=== PATIENT | male | born 1950 | race Caucasian/White ===

== ENCOUNTER 2020-09-25 06:11 | Outpatient (REF) | payer MEDICARE, SELFPAY ==
[2020-09-25 07:07] LABS: MANUAL DIFF FLAG NO
[2020-09-25 07:11] LABS: Basophils Absolute Auto 0.1 X10*3/uL (0.0-0.2); Basophils Percent Auto 0.8 % (0-2); Eosinophils Absolute Auto 0.4 X10*3/uL (0.0-0.4); Eosinophils Percent Auto 4.5 % (0-4); Hemoglobin 16.3 g/dl (14.0-18.0); Imm Gran Abs Auto 0.01 X10*3/uL (0.00-0.03); Imm Gran Pct Auto 0.1 % (0.0-0.4); Lymphocytes Absolute Auto 2.6 X10*3/uL (1.2-4.9); Lymphocytes Percent Auto 31.1 % (20-40); Mean Corpuscular HGB Conc 33.3 g/dl (31.0-36.0); Mean Corpuscular Hemoglobin 29.7 pg (27.0-33.0); Mean Corpuscular Volume 89.4 fL (80-98); Mean Platelet Volume 10.6 fL (9.4-12.4); Monocytes Absolute Auto 0.7 X10*3/uL (0.1-1.2); Monocytes Percent Auto 8.2 % (2-11); Neutrophils Absolute Auto 4.7 X10*3/uL (2.0-8.3); Neutrophils Percent Auto 55.3 % (45-73); Platelet Count 248 X10*3/uL (160-400); Red Blood Count 5.48 X10*6/uL (4.60-5.80); White Blood Count 8.4 X10*3/uL (4.8-10.8)
[2020-09-25 08:00] LABS: Alanine Aminotransferase 33 U/L (0-40); Albumin Level 4.3 g/dL (3.5-5.0); Alkaline Phosphatase 74 U/L (39-117); Anion Gap 11 (12-20); Aspartate Amino Transferase 17 U/L (5-37); Bilirubin Total 0.7 mg/dL (0.0-1.0); Blood Urea Nitrogen 14 mg/dL (9-16); Calcium 9.5 mg/dL (8.4-10.2); Carbon Dioxide 30 mmol/L (22-29); Chloride 103 mmol/L (96-108); Cholesterol 165 mg/dL; Estimated Glomerular Filt Rate > 60; Glucose Fasting 105 mg/dL (60-99); HDL Cholesterol 42 mg/dL; LDL Cholesterol Calculated 95 mg/dl; Potassium 4.1 mmol/l (3.3-5.1); Sodium 140 mmol/L (135-145); Total Protein 6.9 g/dL (6.5-8.0); Triglycerides 142 mg/dL
[2020-09-25 08:31] LABS: Prostate Specific Antigen Scr 0.72 ng/mL (<0.05-4.0); Thyroid Stimulating Hormone 2.06 uIU/mL (0.32-4.0)
[2020-09-25 09:03] LABS: T4 Thyroxine 7.2 ug/dL (4.5-12.0)
[2020-09-25 09:08] LABS: Folate 11.1 ng/mL (> or = 4.0); Vitamin B12 243 pg/mL (200-900)
== END 2020-09-25 06:12 | disposition home or self-care (01) ==
LOC: HO.LAB 06:11
PROVIDERS: Visit Provider Internal Medicine
DX: E66.9 Obesity, unspecified (principal); R73.02 Impaired glucose tolerance (oral); I10 Essential (primary) hypertension; E78.5 Hyperlipidemia, unspecified; E03.9 Hypothyroidism, unspecified; Z12.5 Encounter for screening for malignant neoplasm of prostate
CPT/HCPCS: 36415; 80053; 80061; 82607; 82746; 84153; 84436; 84443; 85025

== ENCOUNTER 2022-01-06 06:39 | Outpatient (REF) | payer MEDICARE, SELFPAY ==
[2022-01-06 06:53] LABS: MANUAL DIFF FLAG NO
[2022-01-06 07:37] LABS: Basophils Absolute Auto 0.1 X10*3/uL (0.0-0.2); Basophils Percent Auto 0.9 % (0-2); Eosinophils Absolute Auto 0.4 X10*3/uL (0.0-0.4); Eosinophils Percent Auto 4.1 % (0-4); Hematocrit 48.5 % (42.0-52.0); Imm Gran Abs Auto 0.03 X10*3/uL (0.00-0.03); Imm Gran Pct Auto 0.3 % (0.0-0.4); Lymphocytes Absolute Auto 2.5 X10*3/uL (1.2-4.9); Mean Corpuscular Hemoglobin 29.6 pg (27.0-33.0); Mean Corpuscular Volume 89.6 fL (80.0-98.0); Mean Platelet Volume 10.6 fL (9.4-12.4); Monocytes Absolute Auto 0.8 X10*3/uL (0.1-1.2); Monocytes Percent Auto 9.1 % (2-11); Neutrophils Absolute Auto 5.2 x10*3/uL (2.0-8.3); Neutrophils Percent Auto 57.6 % (45-73); Platelet Count 299 X10*3/uL (160-400); Red Blood Count 5.41 X10*6/uL (4.60-5.80); Red Cell Distribution Width 13.9 % (11.0-16.0); White Blood Count 9.1 X10*3/uL (4.8-10.8)
[2022-01-06 08:18] LABS: Alanine Aminotransferase 35 U/L (0-40); Albumin Level 4.2 g/dL (3.5-5.0); Alkaline Phosphatase 81 U/L (39-117); Anion Gap 14 (12-20); Aspartate Amino Transferase 21 U/L (5-37); Bilirubin Total 0.9 mg/dL (0.0-1.0); Blood Urea Nitrogen 17 mg/dL (9-16); Calcium 9.6 mg/dL (8.4-10.2); Carbon Dioxide 26 mmol/L (22-29); Chloride 106 mmol/L (96-108); Cholesterol 165 mg/dL; Estimated Glomerular Filt Rate > 60; Free T4 (Free Thyroxine) 0.99 ng/dL (0.71-1.85); Glucose Random 105 mg/dL (60-115); HDL Cholesterol 40 mg/dL; LDL Cholesterol Calculated 107 mg/dl; Potassium 4.4 mmol/L (3.3-5.1); Prostate Specific Antigen Scr 1.35 ng/mL (<0.05-4.0); Sodium 142 mmol/L (135-145); Thyroid Stimulating Hormone 1.61 uIU/mL (0.32-4.0); Total Protein 7.2 g/dL (6.5-8.0); Triglycerides 94 mg/dL
[2022-01-06 08:24] LABS: Estimated Average Glucose 123 mg/dL; Hemoglobin A1c % 5.9 %
[2022-01-06 08:38] LABS: Folate 11.7 ng/mL (> or = 4.0); Vitamin B12 > 2000 pg/mL (200-900)
== END 2022-01-06 06:40 | disposition home or self-care (01) ==
LOC: HO.LAB 06:39
PROVIDERS: PCP Internal Medicine; Visit Provider Internal Medicine
DX: Z12.5 Encounter for screening for malignant neoplasm of prostate (principal); E03.9 Hypothyroidism, unspecified; R73.02 Impaired glucose tolerance (oral); E78.00 Pure hypercholesterolemia, unspecified; I10 Essential (primary) hypertension
CPT/HCPCS: 36415; 80053; 80061; 82607; 82746; 83036; 84153; 84439; 84443; 85025

== ENCOUNTER 2023-03-12 06:18 | Outpatient (REF) | payer MEDICARE, SELFPAY ==
[2023-03-12 08:33] LABS: Alanine Aminotransferase 43 U/L (0-40); Albumin Level 4.1 g/dL (3.5-5.0); Alkaline Phosphatase 80 U/L (39-117); Anion Gap 15 (12-20); Aspartate Amino Transferase 22 U/L (5-37); Bilirubin Total 0.7 mg/dL (0.0-1.0); Blood Urea Nitrogen 18 mg/dL (9-16); Calcium 9.5 mg/dL (8.4-10.2); Carbon Dioxide 22 mmol/L (22-29); Chloride 109 mmol/L (96-108); Cholesterol 133 mg/dL; Estimated Glomerular Filt Rate > 60; Glucose Random 106 mg/dL (60-115); HDL Cholesterol 37 mg/dL; LDL Cholesterol Calculated 84 mg/dl; Sodium 142 mmol/L (135-145); Total Protein 7.1 g/dL (6.5-8.0); Triglycerides 64 mg/dL
[2023-03-12 08:51] LABS: Free T4 (Free Thyroxine) 0.97 ng/dL (0.71-1.85); Thyroid Stimulating Hormone 2.18 uIU/mL (0.32-4.0)
== END 2023-03-12 06:19 | disposition home or self-care (01) ==
LOC: HO.LAB 06:18
PROVIDERS: PCP Internal Medicine; Visit Provider Internal Medicine
DX: E78.00 Pure hypercholesterolemia, unspecified (principal); R73.02 Impaired glucose tolerance (oral); E03.9 Hypothyroidism, unspecified; Z12.5 Encounter for screening for malignant neoplasm of prostate
CPT/HCPCS: 36415; 80053; 80061; 82607; 82746; 83036; 84153; 84439; 84443; 85025

== ENCOUNTER 2023-03-23 11:26 | Outpatient (AMB) | payer MEDICARE, SELFPAY ==
[2023-03-23 11:39] VITALS: BP 138/72; PULSE 74; O2SAT 97; BMI 35.1
--- NOTE | 2023-03-23 11:39 | A.OFFVIS_ITS ---
Intake Vital Signs 03/23/23 11:39 Height 5 ft 7 in Weight 224 lb BMI 35.1 BP 138/72 Blood Pressure Location Lt brachial Position Sitting Pulse 74 Pulse Source Pulse Oximeter Pulse Oximetry (%) 97 Oxygen Delivery Method Room Air Intake Visit Reasons: SAWV Allergies No Known Allergies Allergy (Verified 03/23/23 11:39) Medication List - Last Reconciled 03/23/23 by Isaiah Abdi MD atorvastatin 40 mg PO DAILY clotrimazole 1% 1 appl topical BID 4 weeks cyanocobalamin (vitamin B-12) 1,000 mcg PO DAILY levothyroxine 25 mcg PO QAM lisinopril 10 mg PO DAILY miconazole nitrate 2% (Zeasorb AF) 1 appl topical BID HPI SAWV HPI Details 73-year-old male with a history of hypercholesterolemia hypothyroidism hypertension, impaired glucose tolerance and generalized anxiety disorder coming in for annual well visit last seen in March 2022. [facility] Medical History (Updated 03/23/23 @ 11:46 by Isaiah Abdi MD) Hypercholesterolemia Hypertension Hypothyroid Impaired glucose tolerance Insomnia Obesity (BMI 30-39.9) Renal calculi Surgical History (Updated 10/14/20 @ 12:07 by Mary Jeffers Deborah) History of lithotripsy Family History (Updated 03/23/23 @ 11:40 by Kaci Gale CMA) Father No problems noted. Mother Diabetes Brother No problems noted. Social History (Updated 03/23/23 @ 11:56 by Isaiah Abdi MD) Housing: Apartment Alcohol intake: current Alcohol intake frequency: a few times a month Alcohol type: beer and wine Patient Tobacco Use Status: Never used Tobacco e-Cigarette/Vaping Use: Never Used Second Hand Smoke Exposure: No Current occupational status: retired Cognitive needs: No Hearing needs: No Vision needs: No Questionnaire Medicare Wellness Checkup [age] What gender do you identify with?: male During the past 4 weeks, how much have you been bothered by emotional problems such as feeling anxious, depressed, irritable, sad or downhearted, and blue?: not at all During the past 4 weeks, has your physical & emotional health limited your social activities with family, friends, neighbors, or groups?: not at all During the past 4 weeks, how much bodily pain have you generally had?: no pain During the past 4 weeks, was someone available to help you if you needed & wanted help?: no, not at all During the past 4 weeks, what was the hardest physical activity you could do for at least 2 minutes?: moderate Can you get to places out of walking distance without help? (For eg., can you travel alone on buses, taxis or drive your car?): Yes Can you go shopping for groceries or clothes without someone's help?: Yes Can you prepare your own meals?: Yes Can you do your housework without help?: Yes Because of any health problems, do you need the help of another person with your personal care needs such as eating, bathing, dressing or getting around the house?: No Can you handle your own money without help?: Yes During the past 4 weeks, how would you rate your health in general?: very good During the past 4 weeks how have things been going for you?: pretty well Are you having difficulties driving your car?: no Do you always fasten your seat belt when you are in a car?: yes, usually During past 4 weeks, have you been bothered by the following: never: Falling or dizzy when standing up, Sexual problems?, Trouble eating well?, Teeth or denture problems? and Problems using the telephone? and seldom: Tiredness or fatigue? Have you fallen 2 or more times in the past year?: No Are you afraid of falling?: No Are you a smoker?: no During the past 4 weeks, how many drinks of wine, beer, or other alcoholic beverages did you have?: 2-5 drinks per week Do you exercise for about 20 minutes 3 or more times a week?: no, I usually do not exercise this much Have you been given information to help with the following?: yes: Keeping track of your medications? and no: Hazards in your house that might hurt you? How often do you have trouble taking medicines the way you have been told to take them?: I always take medicine as prescribed How confident are you that you can control & manage most of your health problems?: very confident What is your race?: White PHQ-9 Over the last 2 weeks, how often have you been bothered by any of the following problems? 1. Little interest or pleasure in doing things: not at all 2. Feeling down, depressed, or hopeless: not at all 3. Trouble falling or staying asleep, or sleeping too much: several days 4. Feeling tired or having little energy: several days 5. Poor appetite or overeating: not at all 6. Feeling bad about yourself - or that you are a failure or have let yourself or your family down: not at all 7. Trouble concentrating on things, such as reading the newspaper or watching television: not at all 8. Moving or speaking so slowly that other people could have noticed. Or the opposite - being so fidgety or restless that you have been moving around a lot more than usual: not at all 9. Thoughts that you would be better off or of hurting yourself in some way: not at all Total score: 2 Source: Developed by Drs. Mina Fontaine, Lali Lopez, Stalin Son and colleagues, with an educational larry from [employer]. Thrive Questionnaire Date Thrive assessed: 03/23/23 I am a: Patient What is your living situation today?: I have a steady place to live Within the past 12 months, did the food you bought not last and you didn't have the money to get more?: Never true Within the past 12 months, did you worry whether your food would run out before you got money to buy more?: Never true Do you have trouble paying for medicines?: No Do you have trouble getting transportation to medical appointments?: No Do you have trouble paying your heating and electricity bill?: No Do you have trouble taking care of your child, family member or friend?: No Do you have trouble with day-to-day activities such as bathing, preparing meals, shopping, managing finances, etc.?: No Are you currently unemployed and looking for a job?: No Are you interested in more education?: No Currently or been in a relationship where the following occur: no concerns reported GENO-7 AMB Questionnaire GENO-7 Date GENO - 7 assessed: 03/23/23 Feeling nervous, anxious, or on edge: 0 = Not at all Not being able to stop or control worryin = Not at all Worrying too much about different things: 0 = Not at all Trouble relaxin = Not at all Being so restless that it is hard to sit still: 0 = Not at all Becoming easily annoyed or irritable: 0 = Not at all Feeling afraid as if something awful might happen: 0 = Not at all Total GENO-7 score (0-4 normal; 5-9 mild; 10-14 moderate; 15-21 severe): 0 Source: Developed by Drs. Mina Fontaine, Lali Lopez, Stalin Son and colleagues, with an educational larry from [employer]. Review of Systems Const Denies poor appetite and Denies weakness Eyes Denies no additional complaints ENT Reports Normal hearing present Card Denies chest pain, Denies syncope, Denies rapid heart rate and Denies dyspnea Resp Denies cough and Denies dyspnea GI Denies change in stool character, Reports constipation, Denies diarrhea, Denies nausea and Denies vomiting Denies dysuria and Denies urinary frequency Neuro Reports Normal hearing present, Denies confusion, Denies syncope and Denies weakness Psych Denies confusion Physical Exam Vital Signs: Last Vital Signs Pulse 74 03/23/23 11:39 BP 138/72 03/23/23 11:39 Pulse Ox 97 03/23/23 11:39 Oxygen Delivery Method Room Air 03/23/23 11:39 BMI result Body Mass Index 35.1 Const General: alert and awake; No confusion Orientation/consciousness: No confusion HEENT Head: Yes normocephalic Ears: external ears normal and TM's normal bilaterally Face and sinus: Yes normal facial exam Mouth: moist mucous membranes Throat: Yes tonsils normal Eyes Conjunctivae: conjunctivae normal Pupils: Equal, round and reactive pupils present and Pupil accommodation reflex normal Direct Ophthalmoscopy: normal light reflex Neck Neck: No lymphadenopathy Thyroid: Thyroid normal Chest Chest palpation & inspection: normal inspection of the chest Resp Effort & Inspection: normal respiratory effort and no audible wheezes Auscultation: clear to auscultation bilaterally, no crackles, no wheezes and lung sounds not diminished Cardio Rate: regular rate Rhythm: regular rhythm Peripheral pulses: radial pulses present and dorsalis pedis present GI Other: guaiac negativeprostate N Palpation (GI): no masses Auscultation: normal bowel sounds and normoactive bowel sounds Male General Exam: Yes normal external exam Skin General skin exam: no rashes or lesions noted Rashes: no rashes Neuro General: deep tendon reflexes 2+ bilaterally and No confusion Cranial nerves: Yes Equal, round and reactive pupils present, Yes Midline tongue present, Yes Normal hearing present and Yes Ability to bilaterally elevate shoulders present Cognition (Neuro): normal cognition Gait exam (Neuro): Normal gait present Motor exam (neuro): 5/5 motor strength present throughout Deep tendon reflexes (DTR's): Right brachioradialis reflex intensity grade: 2+, Left brachioradialis reflex intensity grade: 2+, Right patellar reflex intensity grade: 2+ and Left patellar reflex intensity grade: 2+ Extrem General: No edema Assessment & Plan Assessment & Plan (1) Encounter for subsequent annual wellness visit (AWV) in Medicare patient: Code(s): Z00.00 - Encounter for general adult medical examination without abnormal findings (2) Hypothyroid: Code(s): E03.9 - Hypothyroidism, unspecified Qualifiers: Hypothyroidism type: acquired Qualified Code(s): E03.9 - Hypothyroidism, unspecified Plan: Continue with thyroid medication (3) Hypercholesterolemia: Code(s): E78.00 - Pure hypercholesterolemia, unspecified Plan: Avoid fried foods, chicken skin, eggs, butter margarine, pastries and meat. Be it pork or beef they have a lot of cholesterol LDL goal of less than 130 and triglyceride of less than 1 for. Patient is on atorvastatin 40 mg once a day (4) Hypertension: Code(s): I10 - Essential (primary) hypertension Qualifiers: Hypertension type: essential hypertension Qualified Code(s): I10 - Essential (primary) hypertension Plan: Continue with blood pressure medication. Decrease salt intake and exercise patient is on lisinopril 10 mg once a (5) Impaired glucose tolerance: Code(s): R73.02 - Impaired glucose tolerance (oral) Plan: Decrease the amount of carbohydrate intake, pasta, bread, rice and potatoes are all sugar and that is aside from all the sweet stuff, remember that fruits are good but they are Sweet also. (6) Obesity (BMI 30-39.9): Code(s): E66.9 - Obesity, unspecified Plan: Diet and exercise (7) Generalized anxiety disorder: Code(s): F41.1 - Generalized anxiety disorder Plan: Stable (8) LFT elevation: Code(s): R79.89 - Other specified abnormal findings of blood chemistry Plan: Advised get an ultrasound of the liver and hepatitis profile Orders: Orders Ferritin Today R79.89 - Other specified abnormal findings of blood chemistry Liver Panel Today R79.89 - Other specified abnormal findings of blood chemistry Hepatitis B,C Profile Today R79.89 - Other specified abnormal findings of blood chemistry US abdomen complete Today R79.89 - Other specified abnormal findings of blood chemistry ECG 12 lead EKG Today I10 - Essential (primary) hypertension Quality Reporting (2019) Depression/Bipolar (159/160/161/177) PHQ-9: Total score: 2 Coding Level of Care Code Medicare Subsequent (G0439) Diagnoses Encounter for subsequent annual wellness visit (AWV) in Medicare patient Z00.00 Hypothyroid E03.9 Hypothyroidism type: acquired Hypercholesterolemia E78.00 Hypertension I10 Hypertension type: essential hypertension Impaired glucose tolerance R73.02 Obesity (BMI 30-39.9) E66.9 Generalized anxiety disorder F41.1 LFT elevation R79.89
== END 2023-03-23 12:34 | disposition home or self-care (01) ==
PROVIDERS: Visit Provider Internal Medicine
DX: Z00.00 Encounter for general adult medical examination without abnormal findings (principal); E03.9 Hypothyroidism, unspecified; I10 Essential (primary) hypertension; Z68.35 Body mass index [BMI] 35.0-35.9, adult; E78.00 Pure hypercholesterolemia, unspecified; R73.02 Impaired glucose tolerance (oral); E66.9 Obesity, unspecified; F41.1 Generalized anxiety disorder; R79.89 Other specified abnormal findings of blood chemistry
CPT/HCPCS: G0439

== ENCOUNTER 2023-04-08 07:43 | Outpatient (REF) | payer MEDICARE, SELFPAY ==
--- NOTE | ~2023-04-08 | US_ITS ---
EXAMINATION: US ABDOMEN COMPLETE CLINICAL INFORMATION: Other specified abnormal findings of blood chemistry. COMPARISON: Renal ultrasound 01/07/2011 and 09/22/2007. X-ray abdomen KUB 01/15/2009. CT abdomen 09/07/2007. TECHNIQUE: Real-time imaging of the abdominal viscera. FINDINGS: PANCREAS: Head and body appear unremarkable. Tail not visualized. ABDOMINAL AORTA: The proximal, mid, and distal segments are normal in caliber. INFERIOR VENA CAVA: Visualized portions are normal. LIVER: The liver is normal in size. The liver contour is normal. No focal hepatic lesion appreciated. There is no intrahepatic biliary duct dilatation seen. GALLBLADDER: The gallbladder is physiologically distended without evidence of stones, sludge, polyps, wall thickening or pericholecystic fluid. Technologist reports negative sonographic Zavala's sign. COMMON BILE DUCT: Normal in caliber measuring 0.3 cm in diameter. RIGHT KIDNEY: No hydronephrosis or renal calculi. The kidney measures 11.6 cm in maximum dimension. Suspect multiple renal cortical scars/renal cortical thinning. Less than 4 cm benign right simple renal cyst for which no further dedicated follow up imaging is indicated LEFT KIDNEY: Evaluation is limited by suboptimal technique. Question 1 cm, nonobstructing left mid to upper pole collecting system stone. Hydronephrosis is not clearly demonstrated by the technologist; suspect parapelvic cysts. The kidney measures 13.7 cm in maximum dimension. Multiple, less than 3 cm benign left simple renal cysts for which no further dedicated follow up imaging is indicated. SPLEEN: The spleen measures 11.0 cm in maximum dimension. FREE FLUID: None. US/US abdomen complete IMPRESSION: Limited study. No gross acute radiographic finding. Question 1 cm, nonobstructing left mid to upper pole collecting system stone. Suspect multiple right renal cortical scars/renal cortical thinning.
--- NOTE | 2023-04-08 08:49 | ECG_ITS ---
Test Reason : htn Blood Pressure : / mmHG Vent. Rate : 068 BPM Atrial Rate : 068 BPM P-R Int : 166 ms QRS Dur : 088 ms QT Int : 400 ms P-R-T Axes : 050 023 063 degrees QTc Int : 425 ms Normal sinus rhythm Normal ECG No previous ECGs available Referred By: Isaiah Abdi Electronically Signed By:CUCO PATRICIA
[2023-04-08 10:22] LABS: Alanine Aminotransferase 32 U/L (0-40); Albumin Level 4.1 g/dL (3.5-5.0); Alkaline Phosphatase 79 U/L (39-117); Aspartate Amino Transferase 21 U/L (5-37); Bilirubin Direct 0.3 mg/dL (0.0-0.5); Bilirubin Total 0.9 mg/dL (0.0-1.0); Total Protein 7.1 g/dL (6.5-8.0)
[2023-04-08 10:37] LABS: Ferritin 606 ng/mL (20-250)
[2023-04-08 11:29] LABS: HBS Num1 0.27 mIU/mL (0-7.99); HBc Num1 0.13 S/CO (0.00-0.79); Hepatitis B Core Antibody Nonreactive (Nonreactive); Hepatitis B Surface Antigen Negative (Negative); ~HepC Num1 0.06 S/CO (0.00-0.79); ~Hepatitis B Surface Antibody NONREACTIVE (Nonreactive); ~Hepatitis C Antibody Nonreactive (Nonreactive)
== END 2023-04-08 07:44 | disposition home or self-care (01) ==
LOC: HO.US 07:43
PROVIDERS: PCP Internal Medicine; Visit Provider Internal Medicine
DX: R79.89 Other specified abnormal findings of blood chemistry (principal); I10 Essential (primary) hypertension
CPT/HCPCS: 36415; 76700; 80076; 82728; 86704; 86706; 86803; 87340; 93005

== ENCOUNTER → 2023-04-08 08:49 | Outpatient (BNV) | payer MEDICARE, SELFPAY | PROVIDERS: PCP Internal Medicine; Visit Provider Internal Medicine | DX: I10 Essential (primary) hypertension (principal) | CPT/HCPCS: 93010 ==

== ENCOUNTER 2023-06-28 15:16 | Outpatient (AMB) | payer MEDICARE, SELFPAY ==
[2023-06-28 15:25] VITALS: BP 112/66; PULSE 85; O2SAT 99; BMI 34.0
--- NOTE | 2023-06-28 15:25 | A.OFFPC_ITS ---
Vital Signs 06/28/23 15:25 Height 5 ft 7 in Weight 217 lb 0.6 oz BMI 34.0 BP 112/66 Blood Pressure Location Lt brachial Position Sitting Pulse 85 Pulse Source Pulse Oximeter Temp Source Skin Pulse Oximetry (%) 99 Oxygen Delivery Method Room Air Intake Visit Reasons: 3 month f/u Sharepoint Engineer Required: No Allergies No Known Allergies Allergy (Verified 06/28/23 15:26) Tobacco use date assessed: 06/28/23 Fall risk assessment: No Falls in past year Last assessed Fall Risk: 06/28/23 Dental Screening Dental Screen Date: 06/28/23 Did you have a dental visit in the last 12 months?: Yes Did you have a dental problem in the last 6 months where you did not have access to dental care?: No Was dental information given to patient?: Patient has dentist HPI 3 month f/u HPI Details 73-year-old obese male with hypothyroidi sm, hypercholesterolemia hypertension impaired glucose tolerance in general as anxiety disorder last seen for wellness in March 2023.. Noted to have an elevated liver function test and last blood work and repeat was done showing normal liver function test. Patient had hepatitis profile which was negative and an ultrasound of the abdomen was done liver was fine but incidentally question of 1 left kidney stone with cysts [facility] Medical History (Updated 06/28/23 @ 16:04 by Isaiah Abdi MD) Obesity (BMI 30-39.9) Impaired glucose tolerance Hypertension Insomnia Hypercholesterolemia Hypothyroid Renal calculi Surgical History (Updated 10/14/20 @ 12:07 by DANIELA Long) History of lithotripsy Family History (Updated 03/23/23 @ 11:40 by Kaci Gale CMA) Father No problems noted. Mother Diabetes Brother No problems noted. Social History (Updated 03/23/23 @ 11:56 by Isaiah Abdi MD) Housing: Apartment Alcohol intake: current Alcohol intake frequency: a few times a month Alcohol type: beer and wine Patient Tobacco Use Status: Never used Tobacco e-Cigarette/Vaping Use: Never Used Second Hand Smoke Exposure: No Current occupational status: retired Cognitive needs: No Hearing needs: No Vision needs: No Questionnaire Thrive Questionnaire Date Thrive assessed: 03/23/23 AUDIT C Alcohol Use Questionnaire (AUDIT-C) 1. How often do you have a drink containing alcohol?: 2-3 times a week 2. How many drinks containing alcohol do you have on a typical day when you are drinking?: 1 or 2 3. How often do you have six or more drinks on one occasion?: Never Total Score: 3 GENO-7 AMB Questionnaire GENO-7 Date GENO - 7 assessed: 03/23/23 Source: Developed by Drs. Mina Fontaine, Lali Lopez, Stalin Son and colleagues, with an educational larry from [employer]. Physical exam (Primary Care) Vital Signs: Last Vital Signs Pulse 85 06/28/23 15:25 BP 112/66 06/28/23 15:25 Pulse Ox 99 06/28/23 15:25 Oxygen Delivery Method Room Air 06/28/23 15:25 BMI result Body Mass Index 34.0 Tobacco/Smoking Status: Tobacco use Status Tobacco use date assessed 06/28/23 06/28/23 15:26 Patient Tobacco Use Status Never used Tobacco 06/28/23 15:26 e-Cigarette/Vaping Use Never Used 06/28/23 15:26 Thrive Assessment: Date of Thrive Assessment Date Thrive assessed 03/23/23 06/28/23 15:26 Const General: alert; No acute distress Eyes Conjunctivae: conjunctivae normal Resp Auscultation: clear to auscultation bilaterally Cardio Rate: regular rate Rhythm: regular rhythm GI Inspection: Yes normal to inspection Extrem General: Yes normal to inspection and No edema Office Procedures Flu Questionnaire Does the patient have a severe egg allergy?: No Does the patient have severe life threatening allergies?: No Does the patient have a fever or illness today?: No Has the patient ever had Guillain-[place] Syndrome?: No Has the patient ever had any past reaction to a flu shot?: No Immunizations flu vacc [id number] 6mos up(PF) 60 mcg(15 mcgx4)/0.5 mL IM syringe Performing Provider: Isaiah Abdi MD [facility] Administered by: DANIELA Desir on 06/28/23 16:17 Dose Route Admin Location Dispensed Lot Number Expiration Date NDC Visual Basic Developer 0.5 mL IM Left Deltoid 0.5 mL [id number] 03/05/24 14150-550-21 [employer] VIS Given Date VIS Provided VIS Publication Date 06/28/23 Single Vaccine 21 Eligibility Eligibility Date Funding Source Not [facility] Eligible 06/28/23 Private Assessment and Plan Assessment & Plan (1) Hypothyroid: Code(s): E03.9 - Hypothyroidism, unspecified Qualifiers: Hypothyroidism type: acquired Qualified Code(s): E03.9 - Hypothyroidism, unspecified Plan: Continue with thyroid medication (2) Hypercholesterolemia: Code(s): E78.00 - Pure hypercholesterolemia, unspecified Plan: Avoid fried foods, chicken skin, eggs, butter margarine, pastries and meat. Be it pork or beef they have a lot of cholesterol LDL goal of less than 130 and triglyceride of less than 150 patient on atorvastatin 40 mg once a (3) Hypertension: Code(s): I10 - Essential (primary) hypertension Qualifiers: Hypertension type: essential hypertension Qualified Code(s): I10 - Essential (primary) hypertension Plan: Continue with blood pressure medication. Decrease salt intake and exercise continue with lisinopril 10 mg once a day (4) Impaired glucose tolerance: Code(s): R73.02 - Impaired glucose tolerance (oral) Plan: Decrease the amount of carbohydrate intake, pasta, bread, rice and potatoes are all sugar and that is aside from all the sweet stuff, remember that fruits are good but they are Sweet also. (5) Obesity (BMI 30-39.9): Code(s): E66.9 - Obesity, unspecified Plan: Diet and exercise noted weight loss (6) LFT elevation: Code(s): R7. - Other specified abnormal findings of blood chemistry Plan: Resolved (7) Left renal stone: Comment: 04/2023 Code(s): N20.0 - Calculus of kidney Plan: Increase oral fluid (8) High serum ferritin: Code(s): R7.89 - Other specified abnormal findings of blood chemistry Orders: Orders Transferrin Today R7 - Other specified abnormal findings of blood chemistry Influenza [id number] Immunization Today Z23 - Encounter for immunization Complete Blood Count Auto Diff Today - Other specified abnormal findings of blood chemistry Ferritin Today R7.89 - Other specified abnormal findings of blood chemistry IRON PROFILE Today . - Other specified abnormal findings of blood chemistry Reticulocyte Count Today - Other specified abnormal findings of blood chemistry Referrals Urology Referral N20.0 - Calculus of kidney Coding Level of Care Code Est Pt Level 4 (50503) Diagnoses Acquired hypothyroidism E03.9 Hypothyroidism type: acquired Hypercholesterolemia E78.00 Essential hypertension I10 Hypertension type: essential hypertension Impaired glucose tolerance R73.02 Obesity (BMI 30-39.9) E66.9 LFT elevation R79.89 Left renal stone N20.0 High serum ferritin R79.89
== END 2023-06-28 16:11 | disposition home or self-care (01) ==
PROVIDERS: PCP Internal Medicine; Visit Provider Internal Medicine
DX: E03.9 Hypothyroidism, unspecified (principal); E78.00 Pure hypercholesterolemia, unspecified; E66.9 Obesity, unspecified; Z68.34 Body mass index [BMI] 34.0-34.9, adult; Z23 Encounter for immunization; I10 Essential (primary) hypertension; R73.02 Impaired glucose tolerance (oral); R79.89 Other specified abnormal findings of blood chemistry; N20.0 Calculus of kidney
CPT/HCPCS: 90471; 90686; 99214

== ENCOUNTER 2023-07-12 06:43 | Outpatient (REF) | payer MEDICARE, SELFPAY ==
[2023-07-12 07:04] LABS: MANUAL DIFF FLAG NO
[2023-07-12 07:38] LABS: Basophils Absolute Auto 0.1 X10*3/uL (0.0-0.2); Eosinophils Absolute Auto 0.4 X10*3/uL (0.0-0.4); Eosinophils Percent Auto 4.6 % (0-4); Hematocrit 47.2 % (42.0-52.0); Hemoglobin 15.8 g/dl (14.0-18.0); Imm Gran Abs Auto 0.03 X10*3/uL (0.00-0.03); Imm Gran Pct Auto 0.4 % (0.0-0.4); Lymphocytes Absolute Auto 2.1 X10*3/uL (1.2-4.9); Lymphocytes Percent Auto 26.5 % (20-40); Mean Corpuscular HGB Conc 33.5 g/dl (31.0-36.0); Mean Corpuscular Hemoglobin 29.7 pg (27.0-33.0); Mean Corpuscular Volume 88.7 fL (80.0-98.0); Mean Platelet Volume 10.4 fL (9.4-12.4); Monocytes Absolute Auto 0.6 X10*3/uL (0.1-1.2); Monocytes Percent Auto 7.8 % (2-11); Neutrophils Absolute Auto 4.8 x10*3/uL (2.0-8.3); Neutrophils Percent Auto 59.7 % (45-73); Platelet Count 266 X10*3/uL (160-400); Red Blood Count 5.32 X10*6/uL (4.60-5.80); Red Cell Distribution Width 13.8 % (11.0-16.0); Retic HGB Equivalent 35.2 pg (30.0-35.0); Reticulocyte Percent 1.2 % (0.5-1.8); Reticulocytes Absolute 0.062 X10*6/uL (0.026-0.095)
[2023-07-12 08:37] LABS: Iron 135 mcg/dL (45-160); Percent Iron Saturation 49 % (15-50); Total Iron Binding Capacity 275 mcg/dL (228-428); Unsaturated Iron Binding 140 ug/dL
[2023-07-12 08:53] LABS: Ferritin 527 ng/mL (20-250)
[2023-07-13 19:20] LABS: Transferrin 237 mg/dL (188-341)
== END 2023-07-12 06:44 | disposition home or self-care (01) ==
LOC: HO.LAB 06:43
PROVIDERS: PCP Internal Medicine; Visit Provider Internal Medicine
DX: R79.89 Other specified abnormal findings of blood chemistry (principal)
CPT/HCPCS: 36415; 82728; 83540; 84466; 85025; 85045

== ENCOUNTER 2023-07-28 14:50 | Outpatient (AMB) | payer MEDICARE, SELFPAY ==
--- NOTE | 2023-07-28 15:20 | A.OFFVIS_ITS ---
Intake Intake Visit Reasons: Calculus of kidney Intake Note: New patient is present for Stone Allergies No Known Allergies Allergy (Verified 07/28/23 15:32) HPI HPI Comments History of Present Illness Details Solomon is a 73-year-old male who presents today to the office to establish as a new patient for an evaluation of calculus of kidney. 07/28/2023- He presents today for an evaluation of calculus of the kidney. I have reviewed the abdominal US results from 04/28/2023 revealed a benign appearing cyst less than 4 cm in the right kidney and a possible 1 cm stone in the left kidney. I have reviewed the PSA results from 03/12/2023 revealed 2.0 ng/mL. Patient states that that he has had kidney stone many years ago. Plan: CT abdomen/pelvis stone protocol was ordered. FORMERLY [facility], [facility] Medical History Obesity (BMI 30-39.9) Impaired glucose tolerance Hypertension Insomnia Hypercholesterolemia Hypothyroid Renal calculi Surgical History History of lithotripsy Family History Father No problems noted. Mother Diabetes Brother No problems noted. Social History Housing: Apartment Alcohol intake: current Alcohol intake frequency: a few times a month Alcohol type: beer and wine Patient Tobacco Use Status: Never used Tobacco e-Cigarette/Vaping Use: Never Used Second Hand Smoke Exposure: No Current occupational status: retired Cognitive needs: No Hearing needs: No Vision needs: No Review of Systems Const All systems reviewed & are unremarkable except as noted in HPI and below Reports no additional complaints Eyes Reports no additional complaints ENT Reports no additional complaints Card Denies dyspnea Resp Denies cough and Denies dyspnea GI Reports no additional complaints Musc Reports no additional complaints Skin/Breast Denies rash and Denies unusual bruising Neuro Reports no additional complaints Psych Reports no additional complaints Endo Reports no additional complaints Darren/Lymph Reports no additional complaints Aller/Immun Reports no additional complaints Physical Exam Const General: healthy appearing, no acute distress and well developed Orientation/consciousness: patient oriented x3 HEENT Head: Yes normocephalic and Yes atraumatic Eyes Conjunctivae: conjunctivae normal Neck Neck: Yes normal visual inspection Chest Chest palpation & inspection: normal inspection of the chest Resp Effort & Inspection: normal respiratory effort Cardio Rate: regular rate GI Inspection: Yes normal to inspection Skin General skin exam: no rashes or lesions noted Neuro General: patient oriented x3 Extrem General: No pedal edema Psych Appearance: grossly normal Affect: normal affect Assessment & Plan Assessment & Plan (1) Left renal stone: Comment: 04/2023 Code(s): N20.0 - Calculus of kidney Plan CT abdomen/pelvis stone protocol was ordered. Orders: Orders AMB Urinalysis Automated 07/28/23 Z13.9 - Encounter for screening, unspecified CT abdomen pelvis wo IV con 07/28/23 N20.0 - Calculus of kidney Patient Instructions: The patient had an opportunity to ask questions regarding treatment plan. All questions were answered. Imaging, Laboratory studies and physical exam results were discussed and reviewed in detail. No major barriers to understanding were identified. The patient expressed understanding and agreement with the above treatment plan. The patient is aware they should contact our office by phone for worsening of their current condition or the appearance of new symptoms. Compliance is encouraged with any medications and followup testing that is ordered. It is a privilege to be allowed the opportunity to participate in the urologic care of your patient. If you have any questions or concerns regarding treatment for the above conditions please do not hesitate to contact me. The office telephone contact is [phone]. This note is constructed in part using voice recognition software. While every effort has been made to ensure accuracy inbound call center representative errors may have been included. Yours sincerely, Lore Jerome MD Coding Level of Care Code New Pt Level 3 (73861) Diagnoses Left renal stone N20.0
== END 2023-07-28 15:46 | disposition home or self-care (01) ==
PROVIDERS: PCP Internal Medicine; Visit Provider Urology
DX: Z13.9 Encounter for screening, unspecified (principal)
CPT/HCPCS: 99203

== ENCOUNTER → 2023-07-28 14:50 | Outpatient (BNVA) | payer MEDICARE, SELFPAY | PROVIDERS: PCP Internal Medicine; Visit Provider Urology | DX: N20.0 Calculus of kidney (principal) | CPT/HCPCS: 81003; 99202 ==

== ENCOUNTER 2023-09-10 08:00 | Outpatient (REF) | payer MEDICARE, SELFPAY ==
--- NOTE | ~2023-09-10 | CT_ITS ---
EXAMINATION: CT ABDOMEN AND PELVIS WITHOUT CONTRAST CLINICAL INFORMATION: Calculus of kidney. COMPARISON: Ultrasound abdomen 04/08/2023, CT abdomen and pelvis 09/07/2007. TECHNIQUE: Multidetector volumetric imaging was performed from the superior aspect of the liver through the pubic symphysis. Sagittal and coronal reformatted images were obtained on the technologist's workstation. This CT examination was performed using dose optimization techniques as appropriate, variously including the following: *Automated exposure control *Adjustment of mA and/or kV according to patient size (this includes techniques or standardized protocols for targeted exams where dose is matched to indication/reason for exam; i.e. extremities or head) *Use of iterative reconstruction technique DLP: 975 mGy-cm FINDINGS: LUNG BASES: The visualized lung bases are unremarkable. LIVER, GALLBLADDER, AND BILIARY TREE: The liver is normal in size, shape, and attenuation. A small 0.9 cm hepatic cyst is unchanged when compared to 09/07/2007 (2:17). No worrisome solid focal hepatic lesion or biliary ductal dilatation is present. The gallbladder is unremarkable with no evidence of radiopaque gallstones, gallbladder wall thickening, or obvious pericholecystic inflammatory changes. PANCREAS: Unremarkable. SPLEEN: Unremarkable. ADRENAL GLANDS: Unremarkable. KIDNEYS AND URETERS: The kidneys are normal in size, shape, and attenuation. There is a 7 mm calculus present in the upper pole of the left kidney which measures 936 Hounsfield units and is 13.3 cm from the posterior axillary line. No other calculi are seen. No hydronephrosis or hydroureter. There are bilateral benign Bosniak class I renal cysts are noted predominantly cortical on the right and predominantly parapelvic on the left, which require no additional imaging or followup. There is a slightly hyperattenuating left cortical cyst at 21 Hounsfield units which is slightly larger than previously seen and also has thin calcification in its wall (6:35). This is a Bosniak class II cyst and is also not a worrisome finding needing no additional imaging or followup. No solid renal masses are seen. BLADDER: Empty but unremarkable. GASTROINTESTINAL TRACT: The small and large bowel are unremarkable aside from sigmoid diverticula without diverticulitis. The appendix is unremarkable. ABDOMINAL WALL: No significant hernia is appreciated. LYMPH NODES: Normal. VASCULAR: Calcific atherosclerotic changes are present in the aorta and iliofemoral vessels. There is no evidence of an abdominal aortic aneurysm. PELVIC VISCERA: Mild BPH. Normal seminal vesicles. OSSEOUS STRUCTURES: Unremarkable. CT/CT abdomen pelvis wo IV con IMPRESSION: 1. Nonobstructing 7 mm left upper pole renal calculus. 2. Bilateral benign Bosniak class I and class II renal cysts which need no additional imaging or followup. 3. Stable small hepatic cyst. 4. Sigmoid diverticulosis without diverticulitis. 5. Mild BPH. 6. Other incidental findings as described above. Fleischner guidelines were followed.
== END 2023-09-10 08:01 | disposition home or self-care (01) ==
LOC: HO.CT 08:00
PROVIDERS: Visit Provider Urology
DX: N20.0 Calculus of kidney (principal)
CPT/HCPCS: 74176

== ENCOUNTER 2023-09-27 11:30 | Outpatient (AMB) | payer MEDICARE, SELFPAY ==
--- NOTE | 2023-09-27 09:35 | A.OFFVIS_ITS ---
Intake Intake Visit Reasons: follow up/CT Intake Note: Patient presents today for a follow-up on CT scan results: Meds- None Allergies to Antibiotic- No Known Allergies Blood Thinner- None Dumper Mold Cleaner Required: No Accompanied by: Self / Same As Patient Allergies No Known Allergies Allergy (Verified 09/27/23 11:52) Medication List - Last Reconciled 09/27/23 by Lore Jerome MD atorvastatin 40 mg PO DAILY clotrimazole 1% 1 appl topical BID 4 weeks cyanocobalamin (vitamin B-12) 1,000 mcg PO DAILY levothyroxine 25 mcg PO QAM lisinopril 10 mg PO DAILY miconazole nitrate 2% (Zeasorb AF) 1 appl topical BID HPI HPI Comments History of Present Illness Details Solomon is a 73-year-old male who presents today for FU calculus of kidney. 09/27/23: Solomon denies gross hematuria o r renal colic, states he is voiding okay without any difficulty. Reviewed CTAP: 1. A 7 mm Nonobstructing left upper pole renal calculus. 2. Bilateral benign Bosniak class I and class II renal cysts which need no additional imaging or followup. The patient has had lithotripsy in the past, wants to wait until November, I discussed risks to include but not limited to, blood in the urine, bruising to the skin, kidney hematoma, possible need for another procedure if a stone fragment obstructs the ureter while passing, possible need to repeat procedure if stone is not completely fragmented. Review of chart: 07/28/2023- He presents today for an evaluation of calculus of the kidney. I have reviewed the abdominal US results from 04/28/2023 revealed a benign appearing cyst less than 4 cm in the right kidney and a possible 1 cm stone in t he left kidney. I have reviewed the PSA results from 03/12/2023 revealed 2.0 ng/mL. Patient states that that he has had kidney stone many years ago. Plan: Discussed Left ESWL in November [facility] Medical History Obesity (BMI 30-39.9) Impaired glucose tolerance Hypertension Insomnia Hypercholesterolemia Hypothyroid Renal calculi Surgical History History of lithotripsy Family History Father No problems noted. Mother Diabetes Brother No problems noted. Social History Housing: Apartment Alcohol intake: current Alcohol intake frequency: a few times a month Alcohol type: beer and wine Patient Tobacco Use Status: Never used Tobacco e-Cigarette/Vaping Use: Never Used Second Hand Smoke Exposure: No Current occupational status: retired Cognitive needs: No Hearing needs: No Vision needs: No Review of Systems Const All systems reviewed & are unremarkable except as noted in HPI and below Reports no additional complaints Eyes Reports no additional complaints ENT Reports no additional complaints Card Denies dyspnea Resp Denies cough and Denies dyspnea GI Reports no additional complaints Musc Reports no additional complaints Skin/Breast Denies rash and Denies unusual bruising Neuro Reports no additional complaints Psych Reports no additional complaints Endo Reports no additional complaints Darren/Lymph Reports no additional complaints Aller/Immun Reports no additional complaints Results AMB Urinalysis, Automated UA Leukoctes 0 Alice/uL Last Edit by DANIELA Clarke on 09/27/23 12:14 UA Nitrite Negative Last Edit by DANIELA Clarke on 09/27/23 12:14 UA Urobilinogen 0.2 mg/dL Last Edit by DANIELA Clarke on 09/27/23 12:1 4 UA Protein 15 mg/dL Last Edit by DANIELA Clarke on 09/27/23 12:14 UA pH 6.0 Last Edit by DANIELA Clarke on 09/27/23 12:14 UA Blood 0 Branden/uL Last Edit by DANIELA Clarke on 09/27/23 12:14 UA Specific Dellroy 1.030 Last Edit by DANIELA Clarke on 09/27/23 12: 14 UA Ketone Negative Last Edit by DANIELA Clarke on 09/27/23 12:14 UA Bilirubin 0 mg/dL Last Edit by DANIELA Clarke on 09/27/23 12:14 UA Glucose 0 mg/dL Last Edit by SergoDANIELA Wolfe on 09/27/23 12:14 Results Reviewed Results Reviewed: Date of Service: 09/10/23 EXAMINATION: CT ABDOMEN AND PELVIS WITHOUT CONTRAST CLINICAL INFORMATION: Calculus of kidney. COMPARISON: Ultrasound abdomen 04/08/2023, CT abdomen and pelvis 09/07/2007. TECHNIQUE: Multidetector volumetric imaging was performed from the superior aspect of the liver through the pubic symphysis. Sagittal and coronal reformatted images were obtained on the technologist's workstation. This CT examination was performed using dose optimization techniques as appropriate, variously including the following: *Automated exposure control *Adjustment of mA and/or kV according to patient size (this includes techniques or standardized protocols for targeted exams where dose is matched to indication/reason for exam; i.e. extremities or head) *Use of iterative reconstruction technique DLP: 975 mGy-cm FINDINGS: LUNG BASES: The visualized lung bases are unremarkable. LIVER, GALLBLADDER, AND BILIARY TREE: The liver is normal in size, shape, and attenuation. A small 0.9 cm hepatic cyst is unchanged when compared to 09/07/2007 (2:17). No worrisome solid focal hepatic lesion or biliary ductal dilatation is present. The gallbladder is unremarkable with no evidence of radiopaque gallstones, gallbladder wall thickening, or obvious pericholecystic inflammatory changes. PANCREAS: Unremarkable. SPLEEN: Unremarkable. ADRENAL GLANDS: Unremarkable. KIDNEYS AND URETERS: The kidneys are normal in size, shape, and attenuation. There is a 7 mm calculus present in the upper pole of the left kidney which measures 936 Hounsfield units and is 13.3 cm from the posterior axillary line. No other calculi are seen. No hydronephrosis or hydroureter. There are bilateral benign Bosniak class I renal cysts are noted predominantly cortical on the right and predominantly parapelvic on the left, which require no additional imaging or followup. There is a slightly hyperattenuating left cortical cyst at 21 Hounsfield units which is slightly larger than previously seen and also has thin calcification in its wall (6:35). This is a Bosniak class II cyst and is also not a worrisome finding needing no additional imaging or followup. No solid renal masses are seen. BLADDER: Empty but unremarkable. GASTROINTESTINAL TRACT: The small and large bowel are unremarkable aside from sigmoid diverticula without diverticulitis. The appendix is unremarkable. ABDOMINAL WALL: No significant hernia is appreciated. LYMPH NODES: Normal. VASCULAR: Calcific atherosclerotic changes are present in the aorta and iliofemoral vessels. There is no evidence of an abdominal aortic aneurysm. PELVIC VISCERA: Mild BPH. Normal seminal vesicles. OSSEOUS STRUCTURES: Unremarkable. IMPRESSION: 1. Nonobstructing 7 mm left upper pole renal calculus. 2. Bilateral benign Bosniak class I and class II renal cysts which need no additional imaging or followup. 3. Stable small hepatic cyst. 4. Sigmoid diverticulosis without diverticulitis. 5. Mild BPH. Assessment & Plan Assessment & Plan (1) Left renal stone: Comment: 04/2023 Code(s): N20.0 - Calculus of kidney (2) Renal cysts, acquired, bilateral: Code(s): N28.1 - Cyst of kidney, acquired Plan Schedule Left ESWL for November Orders: Orders AMB Urinalysis Automated Today Z13.9 - Encounter for screening, unspecified Patient Instructions: The patient had an opportunity to ask questions regarding treatment plan. All questions were answered. Imaging, Laboratory studies and physical exam results were discussed and reviewed in detail. No major barriers to understanding were identified. The patient expressed understanding and agreement with the above treatment plan. The patient is aware they should contact our office by phone for worsening of their current condition or the appearance of new symptoms. Compliance is encouraged with any medications and followup testing that is ordered. It is a privilege to be allowed the opportunity to participate in the urologic care of your patient. If you have any questions or concerns regarding treatment for the above conditions please do not hesitate to contact me. The office telephone contact is [phone]. This note is constructed in part using voice recognition software. While every effort has been made to ensure accuracy shirring tender errors may have been included. Yours sincerely, Lore Jerome MD Coding Level of Care Code Tele Est Pt Level 4 (22015) Diagnoses Left renal stone N20.0 Renal cysts, acquired, bilateral N28.1
== END 2023-09-27 12:21 | disposition home or self-care (01) ==
PROVIDERS: PCP Internal Medicine; Visit Provider Urology
DX: N20.0 Calculus of kidney (principal); N28.1 Cyst of kidney, acquired; Z13.9 Encounter for screening, unspecified
CPT/HCPCS: 99214

== ENCOUNTER → 2023-09-27 11:30 | Outpatient (BNVA) | payer MEDICARE, SELFPAY | PROVIDERS: PCP Internal Medicine; Visit Provider Urology | DX: N20.0 Calculus of kidney (principal); N28.1 Cyst of kidney, acquired | CPT/HCPCS: 81003 ==

== ENCOUNTER 2023-09-30 06:43 | Outpatient (REF) | payer MEDICARE, SELFPAY ==
[2023-09-30 06:56] LABS: MANUAL DIFF FLAG NO
[2023-09-30 07:55] LABS: INTERNATIONAL NORM RATIO 1.1 (0.9-1.1); Prothrombin Time 13.4 SEC (11.1-13.3)
[2023-09-30 08:03] LABS: Basophils Absolute Auto 0.1 X10*3/uL (0.0-0.2); Basophils Percent Auto 0.9 % (0-2); Eosinophils Absolute Auto 0.4 X10*3/uL (0.0-0.4); Eosinophils Percent Auto 4.6 % (0-4); Hematocrit 47.3 % (42.0-52.0); Hemoglobin 15.7 g/dl (14.0-18.0); Imm Gran Abs Auto 0.02 X10*3/uL (0.00-0.03); Imm Gran Pct Auto 0.3 % (0.0-0.4); Lymphocytes Absolute Auto 2.3 X10*3/uL (1.2-4.9); Lymphocytes Percent Auto 30.5 % (20-40); Mean Corpuscular HGB Conc 33.2 g/dl (31.0-36.0); Mean Corpuscular Hemoglobin 30.1 pg (27.0-33.0); Mean Corpuscular Volume 90.6 fL (80.0-98.0); Mean Platelet Volume 11.1 fL (9.4-12.4); Monocytes Absolute Auto 0.7 X10*3/uL (0.1-1.2); Monocytes Percent Auto 8.8 % (2-11); Neutrophils Absolute Auto 4.2 x10*3/uL (2.0-8.3); Neutrophils Percent Auto 54.9 % (45-73); Platelet Count 253 X10*3/uL (160-400); Red Blood Count 5.22 X10*6/uL (4.60-5.80); Red Cell Distribution Width 13.4 % (11.0-16.0); White Blood Count 7.6 X10*3/uL (4.8-10.8)
[2023-09-30 08:37] LABS: Iron 144 mcg/dL (45-160); Percent Iron Saturation 53 % (15-50); Total Iron Binding Capacity 274 mcg/dL (228-428); Unsaturated Iron Binding 130 ug/dL
[2023-09-30 08:54] LABS: Ferritin 502 ng/mL (20-250)
[2023-09-30 08:59] LABS: Folate 8.8 ng/mL (> or = 4.0); Vitamin B12 700 pg/mL (200-900)
== END 2023-09-30 06:44 | disposition home or self-care (01) ==
LOC: HO.LAB 06:43
PROVIDERS: PCP Internal Medicine; Visit Provider Internal Medicine
DX: R79.89 Other specified abnormal findings of blood chemistry (principal); Z79.01 Long term (current) use of anticoagulants
CPT/HCPCS: 36415; 82607; 82728; 82746; 83540; 85025; 85610

== ENCOUNTER 2023-10-12 13:11 | Outpatient (AMB) | payer MEDICARE, SELFPAY ==
--- NOTE | 2023-10-12 13:11 | MHC.PC.OV ---
Vital Signs 10/12/23 13:12 Height 5 ft 7 in Weight 222 lb BMI 34.8 BP 122/76 Blood Pressure Location Lt brachial Position Sitting Pulse 78 Pulse Source Pulse Oximeter Pulse Oximetry (%) 98 Oxygen Delivery Method Room Air Intake Visit Reasons: high ferritin, L renal calculi Intake Note: Patient is here to follow up Inpatient Coder Required: No Allergies No Known Allergies Allergy (Verified 10/12/23 13:12) Medication List - Last Reconciled 10/12/23 by Isaiah Abdi MD atorvastatin 40 mg PO DAILY clotrimazole 1% 1 appl topical BID 4 weeks cyanocobalamin (vitamin B-12) 1,000 mcg PO DAILY levothyroxine 25 mcg PO QAM lisinopril 10 mg PO DAILY miconazole nitrate 2% (Zeasorb AF) 1 appl topical BID Tobacco use date assessed: 10/12/23 Fall risk assessment: No Falls in past year Last assessed Fall Risk: 10/12/23 Dental Screening Dental Screen Date: 10/12/23 Did you have a dental visit in the last 12 months?: Yes Did you have a dental problem in the last 6 months where you did not have access to dental care?: No Was dental information given to patient?: Patient has dentist HPI high ferritin, L renal calculi HPI Details 73-year-old obese male with hypercholesterolemia hypertension hypothyroidism impaired glucose tolerance coming in for follow-up. Last seen in June 2023. Patient's colonoscopy was up-to-date April 2016. Patient has a history of renal calculi and being followed up by Urology 7 mm left kidney history of having lithotripsy before planned ESWL on November. with the high ferritin would like to see Hematology FORMERLY [facility], [facility] Medical History Obesity (BMI 30-39.9) Impaired glucose tolerance Hypertension Insomnia Hypercholesterolemia Hypothyroid Renal calculi Surgical History History of lithotripsy Family History Father No problems noted. Mother Diabetes Brother No problems noted. Social History Housing: Apartment Alcohol intake: current Alcohol intake frequency: a few times a month Alcohol type: beer and wine Patient Tobacco Use Status: Never used Tobacco e-Cigarette/Vaping Use: Never Used Second Hand Smoke Exposure: No Current occupational status: retired Cognitive needs: No Hearing needs: No Vision needs: No Questionnaire Thrive Questionnaire Date Thrive assessed: 10/12/23 I am a: Patient What is your living situation today?: I have a steady place to live Within the past 12 months, did the food you bought not last and you didn't have the money to get more?: Never true Within the past 12 months, did you worry whether your food would run out before you got money to buy more?: Never true Do you have trouble paying for medicines?: No Do you have trouble getting transportation to medical appointments?: No Do you have trouble paying your heating and electricity bill?: No Do you have trouble taking care of your child, family member or friend?: No Do you have trouble with day-to-day activities such as bathing, preparing meals, shopping, managing finances, etc.?: No Are you currently unemployed and looking for a job?: No Are you interested in more education?: No Please select the resources that you would like help with: None THRIVE Score: 0 AUDIT C Alcohol Use Questionnaire (AUDIT-C) 1. How often do you have a drink containing alcohol?: 2-3 times a week 2. How many drinks containing alcohol do you have on a typical day when you are drinking?: 1 or 2 3. How often do you have six or more drinks on one occasion?: Never Total Score: 3 GENO-7 AMB Questionnaire GENO-7 Date GENO - 7 assessed: 10/12/23 Source: Developed by Drs. Mina Fontaine, Lali Lopez, Stalin Son and colleagues, with an educational larry from [employer]. Physical exam (Primary Care) Vital Signs: Last Vital Signs Pulse 78 10/12/23 13:12 BP 122/76 10/12/23 13:12 Pulse Ox 98 10/12/23 13:12 Oxygen Delivery Method Room Air 10/12/23 13:12 BMI result Body Mass Index 34.8 Tobacco/Smoking Status: Tobacco use Status Tobacco use date assessed 10/12/23 10/12/23 13:13 Patient Tobacco Use Status Never used Tobacco 10/12/23 13:13 e-Cigarette/Vaping Use Never Used 10/12/23 13:13 Thrive Assessment: Date of Thrive Assessment Date Thrive assessed 10/12/23 10/12/23 13:13 Const General: alert; No acute distress Eyes Conjunctivae: conjunctivae normal Resp Auscultation: clear to auscultation bilaterally Cardio Rate: regular rate Rhythm: regular rhythm GI Inspection: Yes normal to inspection Extrem General: Yes normal to inspection and No edema Assessment and Plan Assessment & Plan (1) Hypothyroid: Code(s): E03.9 - Hypothyroidism, unspecified Qualifiers: Hypothyroidism type: acquired Qualified Code(s): E03.9 - Hypothyroidism, unspecified Plan: Continue with present thyroid medication at 25 mcg once a day (2) Hypercholesterolemia: Code(s): E78.00 - Pure hypercholesterolemia, unspecified Plan: Avoid fried foods, chicken skin, eggs, butter margarine, pastries and meat. Be it pork or beef they have a lot of cholesterol LDL goal of less than 130 and triglyceride of less than 150. Patient on atorvastatin 40 mg once a day (3) Hypertension: Code(s): I10 - Essential (primary) hypertension Qualifiers: Hypertension type: essential hypertension Qualified Code(s): I10 - Essential (primary) hypertension Plan: Continue with blood pressure medication. Decrease salt intake and exercise takes lisinopril 10 mg once a day (4) Impaired glucose tolerance: Code(s): R73.02 - Impaired glucose tolerance (oral) Plan: Decrease the amount of carbohydrate intake, pasta, bread, rice and potatoes are all sugar and that is aside from all the sweet stuff, remember that fruits are good but they are Sweet also. (5) Obesity (BMI 30-39.9): Code(s): E66.9 - Obesity, unspecified Plan: Diet and exercise (6) Left renal stone: Comment: 04/2023 Code(s): N20.0 - Calculus of kidney Plan: Patient met with urologist and planned ESWL in November 2022 for (7) High serum ferritin: Code(s): R79.89 - Other specified abnormal findings of blood chemistry Plan: Continue to monitor Orders: Referrals Hematology & Oncology Referral R79.89 - Other specified abnormal findings of blood chemistry Coding Level of Care Code Est Pt Level 4 (03223) Diagnoses Acquired hypothyroidism E03.9 Hypothyroidism type: acquired Hypercholesterolemia E78.00 Essential hypertension I10 Hypertension type: essential hypertension Impaired glucose tolerance R73.02 Obesity (BMI 30-39.9) E66.9 Left renal stone N20.0 High serum ferritin R79.89
[2023-10-12 13:12] VITALS: BP 122/76; PULSE 78; O2SAT 98; BMI 34.8
== END 2023-10-12 13:58 | disposition home or self-care (01) ==
PROVIDERS: PCP Internal Medicine; Visit Provider Internal Medicine
DX: E78.00 Pure hypercholesterolemia, unspecified (principal); Z68.34 Body mass index [BMI] 34.0-34.9, adult; E66.9 Obesity, unspecified; E03.9 Hypothyroidism, unspecified; I10 Essential (primary) hypertension; R73.02 Impaired glucose tolerance (oral); N20.0 Calculus of kidney; R79.89 Other specified abnormal findings of blood chemistry
CPT/HCPCS: 99214

== ENCOUNTER 2023-11-04 13:26 | Outpatient (AMB) | payer MEDICARE, SELFPAY ==
--- NOTE | 2023-11-04 13:42 | A.OFFVIS_ITS ---
Intake Intake Visit Reasons: H&P ESWL Intake Note: Patient presents today for a follow-up Meds- None Allergies to Antibiotic- No Known Allergies Blood Thinner- None Allergies No Known Allergies Allergy (Verified 10/12/23 13:12) HPI HPI Comments History of Present Illness Details Solomon is a 73-year-old male who presents today for FU calculus of kidney. Here for H and P regarding left ESWL Procedure discussed 7 mm upper pole left stone Questions answered Will give medications today as lives alone and can pick them up prior to surgery 09/27/23: Solomon denies gross hematuria o r renal colic, states he is voiding okay without any difficulty. Reviewed CTAP: 1. A 7 mm Nonobstructing left upper pole renal calculus. 2. Bilateral benign Bosniak class I and class II renal cysts which need no additional imaging or followup. The patient has had lithotripsy in the past, wants to wait until November, I discussed risks to include but not limited to, blood in the urine, bruising to the skin, kidney hematoma, possible need for another procedure if a stone fragment obstructs the ureter while passing, possible need to repeat procedure if stone is not completely fragmented. Review of chart: 07/28/2023- He presents today for an evaluation of calculus of the kidney. I have reviewed the abdominal US results from 04/28/2023 revealed a benign appearing cyst less than 4 cm in the right kidney and a possible 1 cm stone in the left kidney. I have reviewed the PSA results from 03/12/2023 revealed 2.0 ng/mL. Patient states that that he has had kidney stone many years ago. [facility] Medical History Obesity (BMI 30-39.9) Impaired glucose tolerance Hypertension Insomnia Hypercholesterolemia Hypothyroid Renal calculi Surgical History History of lithotripsy Family History Father No problems noted. Mother Diabetes Brother No problems noted. Social History Housing: Apartment Alcohol intake: current Alcohol intake frequency: a few times a month Alcohol type: beer and wine Patient Tobacco Use Status: Never used Tobacco e-Cigarette/Vaping Use: Never Used Second Hand Smoke Exposure: No Current occupational status: retired Cognitive needs: No Hearing needs: No Vision needs: No Review of Systems Const Denies chills and Denies fever(s) Card Reports no additional complaints and Denies syncope Resp Denies cough GI Denies abdominal pain and Denies heartburn Reports as per HPI and Denies change in libido Neuro Denies syncope Psych Denies change in libido Endo Denies change in libido Physical Exam Const General: cooperative, healthy appearing, comfortable and no acute distress Orientation/consciousness: patient oriented x3 HEENT Face and sinus: Yes normal facial exam Mouth: moist mucous membranes Neck Neck: Yes normal visual inspection, Yes full ROM and Yes trachea midline Chest Chest palpation & inspection: normal inspection of the chest Resp Effort & Inspection: normal respiratory effort, able to speak in complete sentences and no respiratory distress GI Inspection: Yes normal to inspection Back/Spine/Pelvis Cervical Spine: normal cervical lordosis Thoracic/Lumbar Spine: thoracic and lumbar spine normal to inspection Skin General skin exam: no rashes or lesions noted Neuro General: patient oriented x3, gait normal, tone normal and moves all extremities Extrem General: Yes normal to inspection and Yes capillary refill normal Assessment & Plan Assessment & Plan (1) Left renal stone: Comment: 04/2023 Code(s): N20.0 - Calculus of kidney Plan Risks, benefits and alternatives to therapy were discussed. These include but are not limited to infection, bleeding, damage to local organs and tissues, need for further interventions. Anesthetic risks regarding cardiac arrhythmia, blood clots, and potential mortality were discussed. The patient understands the typical recovery time and the outpatient nature of the procedure. After consideration of these risks the patient gives full informed consent and they wish to move ahead with the procedure. Left ESWL Medications: New tamsulosin 0.4 mg PO BEDTIME 14 days 14 caps 0RF N20.0 - Calculus of kidney phenazopyridine 100 mg PO Q8H 6 doses 6 tabs 0RF M54.50 - Low back pain, unspecified, N20.0 - Calculus of kidney, R31.9 - Hematuria, unspecified tramadol 50 mg PO Q8H PRN 7 tabs 0RF pain N20.0 - Calculus of kidney, N43.3 - Hydrocele, unspecified Patient Instructions: Imaging studies, laboratory and physical exam results were discussed and reviewed in detail. No major barriers to patient understanding were identified. An opportunity to ask questions regarding the treatment plan was provided. All questions were answered. The patient expressed understanding and agreement with the above treatment plan. The patient is aware they should contact our office by phone for worsening of their current condition or the appearance of new urologic symptoms. Compliance is encouraged with any medications and followup testing that is ordered. It is a privilege to participate in the urologic care of your patient. If you have any questions or concerns regarding treatment for the above conditions, or other urologic issues, please do not hesitate to contact me. The office telephone contact is [phone]. This note is constructed using voice recognition software. While every effort has been made to ensure accuracy scratch finisher errors may have been included. Yours sincerely, Dr Juan Price MD, [facility] - Urology Providers of Expert, Compassionate Care for the Genitourinary System Coding Level of Care Code Est Pt Level 3 (15105) Diagnoses Left renal stone N20.0
== END 2023-11-04 14:07 | disposition home or self-care (01) ==
PROVIDERS: PCP Internal Medicine; Visit Provider Urology
DX: N20.0 Calculus of kidney (principal)
CPT/HCPCS: 99213

== ENCOUNTER → 2023-11-04 13:26 | Outpatient (BNVA) | payer MEDICARE, SELFPAY | PROVIDERS: PCP Internal Medicine; Visit Provider Urology | DX: N20.0 Calculus of kidney (principal) | CPT/HCPCS: 99212 ==

== ENCOUNTER 2023-11-10 09:09 | Day surgery (SDC) | payer MEDICARE, SELFPAY ==
--- NOTE | 2023-11-08 13:49 | HO.ANESPROP2 ---
HPI - Anesthesia Eval Consult details Narrative: 73yo M for Left Lithotripsy ESW PMFSH Active Problems Active Problems: All Active Problems (Updated 09/27/23 @ 12:31 by Lore Jerome MD) Renal cysts, acquired, bilateral (Acute) High serum ferritin (Acute) Left renal stone (Acute) LFT elevation (Acute) Guaiac positive stools (Acute) Generalized anxiety disorder (Acute) Encounter for subsequent annual wellness visit (AWV) in Medicare patient (Acute) Tinea cruris (Acute) Impacted cerumen of right ear (Acute) Medicare annual wellness visit, initial (Acute) Vitamin B12 deficiency (Acute) Obesity (BMI 30-39.9) (Acute) Impaired glucose tolerance (Acute) Hypertension (Acute) Hypercholesterolemia (Acute) Hypothyroid (Acute) Past Medical History Medical History Obesity (BMI 30-39.9) Impaired glucose tolerance Hypertension Insomnia Hypercholesterolemia Hypothyroid Renal calculi Family History Family History Father No problems noted. Mother Diabetes Brother No problems noted. Surgical History Surgical History History of lithotripsy Social History Social History Housing: Apartment Alcohol intake: current Alcohol intake frequency: a few times a month Alcohol type: beer and wine Patient Tobacco Use Status: Never used Tobacco e-Cigarette/Vaping Use: Never Used Second Hand Smoke Exposure: No Current occupational status: retired Cognitive needs: No Hearing needs: No Vision needs: No Meds Allergies Allergy/AdvReac Type Severity Reaction Status Date / Time No Known Allergies Allergy Verified 10/12/23 13:12 Home Medications Medication Instructions Recorded Confirmed Last Taken Type cyanocobalamin (vitamin B-12) 1,000 mcg PO DAILY 01/24/21 10/12/23 Unknown History 1,000 mcg capsule Assessment and Plan Assessment Anesthesia Assessment: Chart Reviewed
--- NOTE | ~2023-11-10 | XR_ITS ---
EXAMINATION: XR ABDOMEN KUB CLINICAL INDICATION: Left-sided kidney stone COMPARISON: CT abdomen pelvis September 10, 2023 TECHNIQUE: Single view, two film KUB of the abdomen was obtained. Overlying stool limits sensitivity for small renal calculi. FINDINGS: Again demonstrated is a 7 mm calcification projecting over the upper to midpole the left renal shadow. No definitive right-sided renal calcifications identified. No calcifications identified along the expected course of either ureter. Numerous pelvic calcifications are suspected to be vascular in nature. Nonobstructive bowel gas pattern. No acute osseous abnormality. XR/XR KUB IMPRESSION: Again demonstrated is a 7 mm calcification projecting over the upper to midpole of the left renal shadow.
[2023-11-10 09:55] VITALS: BMI 33.8
[2023-11-10] MEDS: Lactated Ringers 1,000 ML 100 ML IVCONT (10:02)
--- NOTE | 2023-11-10 10:05 | P.CONAN_ITS ---
[facility] Active Problems Active Problems: All Active Problems (Updated 09/27/23 @ 12:31 by Lore Jerome MD) Renal cysts, acquired, bilateral (Acute) High serum ferritin (Acute) Left renal stone (Acute) LFT elevation (Acute) Guaiac positive stools (Acute) Generalized anxiety disorder (Acute) Encounter for subsequent annual wellness visit (AWV) in Medicare patient (Acute) Tinea cruris (Acute) Impacted cerumen of right ear (Acute) Medicare annual wellness visit, initial (Acute) Vitamin B12 deficiency (Acute) Obesity (BMI 30-39.9) (Acute) Impaired glucose tolerance (Acute) Hypertension (Acute) Hypercholesterolemia (Acute) Hypothyroid (Acute) Past Medical History Medical History Obesity (BMI 30-39.9) Impaired glucose tolerance Hypertension Insomnia Hypercholesterolemia Hypothyroid Renal calculi Functional capacity: independent ambulation Family History Family History Father No problems noted. Mother Diabetes Brother No problems noted. Surgical History Surgical History History of lithotripsy Social History Social History Housing: Apartment Alcohol intake: current Alcohol intake frequency: a few times a month Alcohol type: beer and wine Patient Tobacco Use Status: Never used Tobacco e-Cigarette/Vaping Use: Never Used Second Hand Smoke Exposure: No Are you DNR?: No Advance Directives: No Advance Directives Information Provided: Yes Nutrition Risks: No Nutritional Risk Current occupational status: retired Cognitive needs: No Hearing needs: No Vision needs: No Meds Allergies Allergy/AdvReac Type Severity Reaction Status Date / Time No Known Allergies Allergy Verified 10/12/23 13:12 Active Medications: Current Medications Lactated Ringer's (Lr) 1,000 mls @ 100 mls/hr IVCONT .Q10H PILAR Last Admin: 11/10/23 10:02 Dose: 100 mls/hr Home Medications Medication Instructions Recorded Confirmed Last Taken Type cyanocobalamin (vitamin B-12) 1,000 mcg PO DAILY 01/24/21 10/12/23 Unknown History 1,000 mcg capsule Exam Height,Weight and Vital Signs: Height 5 ft 8 in Weight 100.698 kg
[2023-11-10 10:11] VITALS: BP 134/79; PULSE 77; RESP 18; TEMP 36.6; O2SAT 98
--- NOTE | 2023-11-10 11:52 | HO.ANESPROP2 ---
[facility] Active Problems Active Problems: All Active Problems (Updated 09/27/23 @ 12:31 by Lore Jerome MD) Renal cysts, acquired, bilateral (Acute) High serum ferritin (Acute) Left renal stone (Acute) LFT elevation (Acute) Guaiac positive stools (Acute) Generalized anxiety disorder (Acute) Encounter for subsequent annual wellness visit (AWV) in Medicare patient (Acute) Tinea cruris (Acute) Impacted cerumen of right ear (Acute) Medicare annual wellness visit, initial (Acute) Vitamin B12 deficiency (Acute) Obesity (BMI 30-39.9) (Acute) Impaired glucose tolerance (Acute) Hypertension (Acute) Hypercholesterolemia (Acute) Hypothyroid (Acute) Past Medical History Medical History Obesity (BMI 30-39.9) Impaired glucose tolerance Hypertension Insomnia Hypercholesterolemia Hypothyroid Renal calculi Functional capacity: independent ambulation Family History Family History Father No problems noted. Mother Diabetes Brother No problems noted. Family history of problems with anesthesia: No Surgical History Surgical History Hx of colonoscopy History of lithotripsy History of Problems with Anesthesia: No Social History Social History Housing: Apartment Alcohol intake: current Alcohol intake frequency: a few times a month Alcohol type: beer and wine Patient Tobacco Use Status: Never used Tobacco e-Cigarette/Vaping Use: Never Used Second Hand Smoke Exposure: No Are you DNR?: No Advance Directives: No Advance Directives Information Provided: Yes Nutrition Risks: No Nutritional Risk Current occupational status: retired Cognitive needs: No Hearing needs: No Vision needs: No Meds Allergies Allergy/AdvReac Type Severity Reaction Status Date / Time No Known Allergies Allergy Verified 11/10/23 10:13 Active Medications: Current Medications Lactated Ringer's (Lr) 1,000 mls @ 100 mls/hr IVCONT .Q10H PILAR Last Admin: 11/10/23 10:02 Dose: 100 mls/hr Home Medications Medication Instructions Recorded Confirmed Last Taken Type cyanocobalamin (vitamin B-12) 1,000 mcg PO DAILY 01/24/21 11/10/23 Unknown History 1,000 mcg capsule Exam Height,Weight and Vital Signs: Height 5 ft 8 in Weight 100.698 kg Last Vital Signs Temp 97.9 F 11/10/23 10:11 Pulse 77 11/10/23 10:11 Resp 18 11/10/23 10:11 BP 134/79 11/10/23 10:11 Pulse Ox 98 11/10/23 10:11 O2 Del Method Room Air 11/10/23 10:11 Airway Mallampati Class: III TM Dist: >3cm Neck ROM: Full Heart: RRR Lungs: CTA Assessment and Plan Assessment Anesthesia Assessment: Anesthesia Plan Discussed Final Anesthetic Review Family History of Problems with Anesthesia: No History of Problems with Anesthesia: No NPO: Yes ASA Class: III Final Preanesthetic Review: Meds/Allgs Chart Reviewed, Consent Obtained/Reviewed and Anes Risks/Benef Reviewed Patient Risk: Intermediate Procedure Risk: Low Anesthetic Plan Anesthetic Plan: GA Disposition: Standard PACU
--- NOTE | 2023-11-10 12:32 | W.PM.OPN ---
Operative Note Operative Note Date of Service: 11/10/23 Narrative: PreOperative Diagnosis:? ? Left Renal stone Post Operative Diagnosis:?Left? Renal stone Procedure:?Left? ESWL Surgeon:?Dr Lore Jerome Anesthesia:? General Indications for procedure: The patient understands there is a risk of bruising or hematoma to the kidney, infection, and stone migration following the procedure and subsequent intervention may be required.? - Imaging 7 by 5 mm stone Procedure: After informed consent was verified the patient was brought to the operating room and placed in a supine position.? Anesthesia was performed per protocol. Safety pause time-out was performed. Imaging was displayed in the room and laterality confirmed. ESWL was performed.?The stone was visualized on both fluoroscopy and ultrasound.? Shockwave lithotripsy was performed, with a maximum rate of 120 hertz. After the first 300 shocks a pause for 3 minutes was completed.? A total of 2500 shocks to a maximum of power of 18 with a maximum rate of 120 hertz.? Some fragmentation of the stone was appreciated. Fluoroscopy time 0.50 minutes. The patient tolerated the procedure well and was transferred to the recovery area upon completion. Complications: None
[2023-11-10 12:46] VITALS: BP 127/78; PULSE 71; RESP 16; TEMP 36.2; O2SAT 94
[2023-11-10 12:51] VITALS: BP 112/54; PULSE 71; RESP 16; O2SAT 93
[2023-11-10 12:56] VITALS: BP 125/68; PULSE 81; RESP 16; O2SAT 95
[2023-11-10 13:01] VITALS: BP 131/85; PULSE 94; RESP 16; O2SAT 95
[2023-11-10 13:16] VITALS: BP 128/72; PULSE 61; RESP 18; TEMP 36.2; O2SAT 97
--- NOTE | 2023-11-10 14:12 | HO.POSTANES ---
Post Anesthesia Evaluation Post Anesthesia Evaluation Date of Service: 11/10/23 Vital Signs: Vital Signs Temp Pulse Resp BP Pulse Ox O2 Del Method 11/10/23 13:16 97.2 F 61 18 128/72 97 Room Air 11/10/23 13:01 94 16 131/85 95 Room Air 11/10/23 12:56 81 16 125/68 95 Room Air 11/10/23 12:51 71 16 112/54 L 93 Room Air 11/10/23 12:46 97.2 F 71 16 127/78 94 Room Air 11/10/23 10:11 97.9 F 77 18 134/79 98 Room Air Anesthesia: General LMA Mental Status: Awake Pain Control: Satisfactory Nausea/Vomiting: None Hydration: Adequate Anesthesia-Related Issues: No Anes. Related Issues
== END 2023-11-10 14:04 | disposition home or self-care (01) ==
PROVIDERS: PCP Internal Medicine; Visit Provider Urology
PROC: (CPT 50590; principal; 2023-11-10 11:00)
DX: N20.0 Calculus of kidney (principal); Z87.442 Personal history of urinary calculi; N28.1 Cyst of kidney, acquired; I10 Essential (primary) hypertension; E78.00 Pure hypercholesterolemia, unspecified; E03.9 Hypothyroidism, unspecified; R73.02 Impaired glucose tolerance (oral); Z79.899 Other long term (current) drug therapy
CPT/HCPCS: 50590; 74018; J0131; J0690; J1100; J1940; J2250; J2371; J2405; J2704; J3010

== ENCOUNTER → 2023-11-10 09:09 | Outpatient (BNV) | payer MEDICARE, SELFPAY | PROVIDERS: PCP Internal Medicine; Visit Provider Urology | DX: N20.0 Calculus of kidney (principal) | CPT/HCPCS: 50590 ==

== ENCOUNTER → 2023-11-23 11:17 | Outpatient (BNV) | payer MEDICARE, SELFPAY | PROVIDERS: PCP Internal Medicine; Referring Provider Internal Medicine; Visit Provider Internal Medicine | DX: R79.89 Other specified abnormal findings of blood chemistry (principal) | CPT/HCPCS: 99204; 99213; 99214 ==

== ENCOUNTER 2023-12-06 09:51 | Outpatient (REF) | payer MEDICARE, SELFPAY ==
--- NOTE | ~2023-12-06 | US_ITS ---
EXAMINATION: US RETROPERITONEAL LIMITED (RENAL ONLY) CLINICAL INFORMATION: Renal calculus. COMPARISON: CT abdomen and pelvis dated 09/10/2023; abdominal ultrasound dated 04/08/2023. TECHNIQUE: Real-time imaging of the kidneys. FINDINGS: RIGHT KIDNEY: 11.3 x 5.4 x 6.0 cm (SAG x AP x TRV). The kidney is normal in size, contour, and echogenicity. Renal cortical thickness is normal. No calculi or focal parenchymal lesions. No hydronephrosis. At the lower pole, a 3.9 cm benign, simple cyst is seen, for which no imaging follow-up is recommended. LEFT KIDNEY: 13.2 x 5.6 x 5.6 cm (SAG x AP x TRV). The kidney is normal in size, contour, and echogenicity. Renal cortical thickness is normal. No focal parenchymal lesions. At the interpolar aspect, 4 mm and 4 mm nonobstructing calculi are seen. At the lower pole, a 2 mm nonobstructing calculus is seen. No hydronephrosis. At the upper pole, a 1.7 cm benign, simple cyst is seen. At the interpolar aspect, 1.1 cm and 5.0 cm benign, simple cysts are seen. At the lower pole, a 1.8 cm benign, simple cyst is seen. These require no imaging follow-up. US/US renal BI IMPRESSION: There are nonobstructing left renal calculi. No right renal calculus is seen. No hydronephrosis is noted bilaterally.
== END 2023-12-06 09:52 | disposition home or self-care (01) ==
LOC: HO.HMGCX 09:51
PROVIDERS: PCP Internal Medicine; Visit Provider Urology
DX: N20.0 Calculus of kidney (principal)
CPT/HCPCS: 76775

== ENCOUNTER 2023-12-23 | Outpatient (REF) | payer MEDICARE, SELFPAY ==
[2024-01-11 23:02] LABS: Stone Source KIDNEY STONE
== END 2023-12-23 00:01 | disposition home or self-care (01) ==
LOC: HO.LNP
PROVIDERS: Visit Provider Urology
DX: N20.0 Calculus of kidney (principal)
CPT/HCPCS: 82365; 88300

== ENCOUNTER 2023-12-23 15:29 | Outpatient (AMB) | payer MEDICARE, SELFPAY ==
--- NOTE | 2023-12-23 15:33 | A.OFFVIS_ITS ---
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 He states he is doing well. KUB 11/10/23 noted a 7 mm Left kidney stone. FU imaging - renal US 12/06/23 post Left ESWL-notes smaller left renal calculi, likely remaining stone fragments. Plan 24 hr urine, monitor kidneys, KUB in 3 months, CT stone protocol in 10 months. Review of chart: 11/04/23--Here for H and P regarding left ESWL Procedure discussed 7 mm upper pole left stone Questions answered Will give medications today as lives alone and can pick them up prior to surgery 09/27/23: Solomon denies gross hematuria or renal colic, states he is voiding okay without any difficulty. Reviewed CTAP: 1. A 7 mm Nonobstructing left upper pole renal calculus. 2. Bilateral benign Bosniak class I and class II renal cysts which need no additional imaging or followup. The patient has had lithotripsy in the past, wants to wait until November, I discussed risks to include but not limited to, blood in the urine, bruising to the skin, kidney hematoma, possible need for another procedure if a stone fragment obstructs the ureter while passing, possible need to repeat procedure if stone is not completely fragmented. 07/28/2023- He presents today for an evaluation of calculus of the kidney. I have reviewed the abdominal US results from 04/28/2023 revealed a benign appearing cyst less than 4 cm in the right kidney and a possible 1 cm stone in the left kidney. I have reviewed the PSA results from 03/12/2023 revealed 2.0 ng/mL. Patient states that that he has had kidney stone many years ago. [facility], [facility] Medical History Obesity (BMI 30-39.9) Impaired glucose tolerance Hypertension Insomnia Hypercholesterolemia Hypothyroid Renal calculi Surgical History Hx of colonoscopy History of lithotripsy Family History Father No problems noted. Mother Diabetes Brother No problems noted. Social History Housing: Apartment Alcohol intake: current Alcohol intake frequency: a few times a month Alcohol type: beer and wine Patient Tobacco Use Status: Never used Tobacco e-Cigarette/Vaping Use: Never Used Second Hand Smoke Exposure: No Have you been hit, kicked, punched, or otherwise hurt by someone within the past year? If so, by whom?: No Do you feel safe in your current relationship?: Yes Do you have thoughts of harming others: None Do you have a plan to hurt others: No Plan Current occupational status: retired Cognitive needs: No Hearing needs: No Vision needs: No Results AMB Urinalysis, Automated UA Leukoctes 0 Alice/uL Last Edit by DANIELA Clarke on 12/23/23 15:45 UA Nitrite Negative Last Edit by DANIELA Clarke on 12/23/23 15:45 UA Urobilinogen 4 mg/dL Last Edit by DANIELA Clarke on 12/23/23 15:45 2+ Arslan Santiago 12/23/23 15:45 UA Protein 15 mg/dL Last Edit by DANIELA Clarke on 12/23/23 15:45 UA pH 7.0 Last Edit by DANIELA Clarke on 12/23/23 15:45 UA Blood 0 Branden/uL Last Edit by DANIELA Clarke on 12/23/23 15:45 UA Specific [place] 1.015 Last Edit by DANIELA Clarke on 12/23/23 15: 45 UA Ketone Negative Last Edit by DANIELA Clarke on 12/23/23 15:45 UA Bilirubin 0 mg/dL Last Edit by DANIELA Clarke on 12/23/23 15:45 UA Glucose 0 mg/dL Last Edit by DANIELA Clarke on 12/23/23 15:45 Results Reviewed Results Reviewed: Laboratory Last Values Urine pH (Auto) 7.0 12/23/23 15:39 Specific [place] (Auto) 1.015 12/23/23 15:39 Urine Protein (Auto) 15 mg/dL 12/23/23 15:39 Glucose (UA)(Auto) 0 mg/dL 12/23/23 15:39 Urine Ketones (Auto) Negative 12/23/23 15:39 Urine Blood (Auto) 0 Branden/uL 12/23/23 15:39 Urine Nitrite (Auto) Negative 12/23/23 15:39 Urine Bilirubin (Auto) 0 mg/dL 12/23/23 15:39 Urine Urobilinogen (Auto) 4 mg/dL 12/23/23 15:39 Leukocyte Esterase (Auto) 0 Alice/uL 12/23/23 15:39 Date of Service: 12/06/23 EXAMINATION: US RETROPERITONEAL LIMITED (RENAL ONLY) CLINICAL INFORMATION: Renal calculus. COMPARISON: CT abdomen and pelvis dated 09/10/2023; abdominal ultrasound dated 04/08/2023. TECHNIQUE: Real-time imaging of the kidneys. FINDINGS: RIGHT KIDNEY: 11.3 x 5.4 x 6.0 cm (SAG x AP x TRV). The kidney is normal in size, contour, and echogenicity. Renal cortical thickness is normal. No calculi or focal parenchymal lesions. No hydronephrosis. At the lower pole, a 3.9 cm benign, simple cyst is seen, for which no imaging follow-up is recommended. LEFT KIDNEY: 13.2 x 5.6 x 5.6 cm (SAG x AP x TRV). The kidney is normal in size, contour, and echogenicity. Renal cortical thickness is normal. No focal parenchymal lesions. At the interpolar aspect, 4 mm and 4 mm nonobstructing calculi are seen. At the lower pole, a 2 mm nonobstructing calculus is seen. No hydronephrosis. At the upper pole, a 1.7 cm benign, simple cyst is seen. At the interpolar aspect, 1.1 cm and 5.0 cm benign, simple cysts are seen. At the lower pole, a 1.8 cm benign, simple cyst is seen. These require no imaging follow-up. IMPRESSION: There are nonobstructing left renal calculi. No right renal calculus is seen. No hydronephrosis is noted bilaterally. Date of Service: 11/10/23 EXAMINATION: XR ABDOMEN KUB CLINICAL INDICATION: Left-sided kidney stone COMPARISON: CT abdomen pelvis September 10, 2023 TECHNIQUE: Single view, two film KUB of the abdomen was obtained. Overlying stool limits sensitivity for small renal calculi. FINDINGS: Again demonstrated is a 7 mm calcification projecting over the upper to midpole the left renal shadow. No definitive right-sided renal calcifications identified. No calcifications identified along the expected course of either ureter. Numerous pelvic calcifications are suspected to be vascular in nature. Nonobstructive bowel gas pattern. No acute osseous abnormality. IMPRESSION: Again demonstrated is a 7 mm calcification projecting over the upper to midpole of the left renal shadow. Assessment & Plan Assessment & Plan (1) Left renal stone: Code(s): N20.0 - Calculus of kidney Category: Medical (2) Renal cysts, acquired, bilateral: Code(s): N28.1 - Cyst of kidney, acquired Category: Medical Plan 24 hr urine collection. KUB. Fu in 3 months, CT stone protocol in 10 months Orders: Orders AMB Urinalysis Automated 12/23/23 Z13.9 - Encounter for screening, unspecified CT abdomen pelvis wo IV con 10 Months N20.0 - Calculus of kidney Patient Instructions: The patient had an opportunity to ask questions regarding treatment plan. All questions were answered. Imaging, Laboratory studies and physical exam results were discussed and reviewed in detail. No major barriers to understanding were identified. The patient expressed understanding and agreement with the above treatment plan. The patient is aware they should contact our office by phone for worsening of their current condition or the appearance of new symptoms. Compliance is encouraged with any medications and followup testing that is ordered. It is a privilege to be allowed the opportunity to participate in the urologic care of your patient. If you have any questions or concerns regarding treatment for the above conditions please do not hesitate to contact me. The office telephone contact is [phone]. This note is constructed in part using voice recognition software. 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 Yours sincerely, Lore Jerome MD Coding Level of Care Code Global (52078) Diagnoses Left renal stone N20.0 Renal cysts, acquired, bilateral N28.1
== END 2023-12-23 15:59 | disposition home or self-care (01) ==
PROVIDERS: PCP Internal Medicine; Visit Provider Urology
DX: N20.0 Calculus of kidney (principal); N28.1 Cyst of kidney, acquired
CPT/HCPCS: 99024

== ENCOUNTER → 2023-12-23 15:29 | Outpatient (BNVA) | payer MEDICARE, SELFPAY | PROVIDERS: PCP Internal Medicine; Visit Provider Urology | DX: N20.0 Calculus of kidney (principal); Z79.899 Other long term (current) drug therapy | CPT/HCPCS: 81003; 99212 ==

== ENCOUNTER 2024-03-22 06:04 | Outpatient (REF) | payer MEDICARE, SELFPAY ==
[2024-03-22 06:24] LABS: MANUAL DIFF FLAG NO
[2024-03-22 08:56] LABS: Basophils Absolute Auto 0.1 X10*3/uL (0.0-0.2); Basophils Percent Auto 0.8 % (0-2); Eosinophils Absolute Auto 0.4 X10*3/uL (0.0-0.4); Hematocrit 46.3 % (42.0-52.0); Hemoglobin 15.6 g/dl (14.0-18.0); Imm Gran Abs Auto 0.02 X10*3/uL (0.00-0.03); Imm Gran Pct Auto 0.2 % (0.0-0.4); Immature Retic Fraction 11.9 % (2.3-13.4); Lymphocytes Absolute Auto 2.9 X10*3/uL (1.2-4.9); Lymphocytes Percent Auto 29.5 % (20-40); Mean Corpuscular HGB Conc 33.7 g/dl (31.0-36.0); Mean Corpuscular Hemoglobin 29.9 pg (27.0-33.0); Mean Corpuscular Volume 88.7 fL (80.0-98.0); Mean Platelet Volume 10.9 fL (9.4-12.4); Monocytes Absolute Auto 0.9 X10*3/uL (0.1-1.2); Monocytes Percent Auto 9.3 % (2-11); Neutrophils Absolute Auto 5.6 x10*3/uL (2.0-8.3); Neutrophils Percent Auto 56.2 % (45-73); Platelet Count 237 X10*3/uL (160-400); Red Blood Count 5.22 X10*6/uL (4.60-5.80); Red Cell Distribution Width 14.1 % (11.0-16.0); Retic HGB Equivalent 34.2 pg (30.0-35.0); Reticulocyte Percent 1.4 % (0.5-1.8); Reticulocytes Absolute 0.073 X10*6/uL (0.026-0.095)
[2024-03-22 09:36] LABS: Alanine Aminotransferase 30 U/L (0-40); Albumin Level 4.1 g/dL (3.5-5.0); Alkaline Phosphatase 69 U/L (39-117); Anion Gap 13 (12-20); Aspartate Amino Transferase 20 U/L (5-37); Bilirubin Total 0.8 mg/dL (0.0-1.0); Blood Urea Nitrogen 17 mg/dL (9-16); Carbon Dioxide 25 mmol/L (22-29); Chloride 107 mmol/L (96-108); Cholesterol 163 mg/dL (<200); Estimated Glomerular Filt Rate > 60; Glucose Random 85 mg/dL (60-115); HDL Cholesterol 44 mg/dL (>40); Iron 94 mcg/dL (45-160); LDL Cholesterol Calculated 95 mg/dL (<100); Percent Iron Saturation 35 % (15-50); Potassium 3.6 mmol/L (3.3-5.1); Sodium 141 mmol/L (135-145); Total Iron Binding Capacity 265 mcg/dL (228-428); Total Protein 7.1 g/dL (6.5-8.0); Triglycerides 120 mg/dL (<150); Unsaturated Iron Binding 171 ug/dL
[2024-03-22 09:57] LABS: Ferritin 472 ng/mL (20-250); Thyroid Stimulating Hormone 2.59 uIU/mL (0.32-4.0)
[2024-03-22 12:36] LABS: Estimated Average Glucose 111 mg/dL; Hemoglobin A1c % 5.5 % (<6.0)
[2024-03-22 14:20] LABS: Folate 7.6 ng/mL (> or = 4.0); Prostate Specific Antigen Scr 2.96 ng/mL (<0.05-4.0); Vitamin B12 568 pg/mL (200-900)
== END 2024-03-22 06:05 | disposition home or self-care (01) ==
LOC: HO.LAB 06:04
PROVIDERS: PCP Internal Medicine; Visit Provider Internal Medicine
DX: R79.89 Other specified abnormal findings of blood chemistry (principal); E78.00 Pure hypercholesterolemia, unspecified; Z12.5 Encounter for screening for malignant neoplasm of prostate
CPT/HCPCS: 36415; 80053; 80061; 82607; 82728; 82746; 83036; 83540; 84153; 84439; 84443; 85025; 85045

== ENCOUNTER 2024-03-27 11:19 | Outpatient (AMB) | payer MEDICARE, SELFPAY ==
--- NOTE | 2024-03-27 11:20 | A.OFFVIS_ITS ---
Intake Vital Signs 03/27/24 11:26 Height 5 ft 8 in Weight 227 lb 0.8 oz BMI 34.5 BP 122/74 Blood Pressure Location Lt brachial Position Sitting Pulse 78 Pulse Source Pulse Oximeter Pulse Oximetry (%) 96 Oxygen Delivery Method Room Air Intake Visit Reasons: awv Reservation Sales Agent Required: No Allergies No Known Allergies Allergy (Verified 03/27/24 11:27) Medication List - Last Reconciled 03/27/24 by Isaiah Abdi MD atorvastatin 40 mg PO DAILY clotrimazole 1% 1 appl topical BID 4 weeks cyanocobalamin (vitamin B-12) 1,000 mcg PO .once a week levothyroxine 25 mcg PO QAM lisinopril 10 mg PO DAILY tamsulosin 0.4 mg PO BEDTIME 14 days HPI awv HPI Details 74-year-old obese male with hypothyroid, hypercholesterolemia hypertension impaired glucose tolerance nephrolithiasis left coming in for annual well visit last seen in October 2023. Patient's colonoscopy last done in April 2016. Concerns about an high ferritin was sent to Hematology Oncology question of reactive, workup has been negative. Advised low iron diet and decreasing alcohol intake as it increases absorption of dietary iron. No need for therapeutic phlebotomy. Patient also follows up with urology has had ESWL November 2023 left renal calculi 7 mm on tamsulosin. December 2023 noted small left renal calculi left will continue to be followed up [facility] Medical History (Updated 03/27/24 @ 11:52 by Isaiah Abdi MD) Obesity (BMI 30-39.9) Impaired glucose tolerance Hypertension Insomnia Hypercholesterolemia Hypothyroid Renal calculi Surgical History Hx of colonoscopy History of lithotripsy Family History Father No problems noted. Mother Diabetes Brother No problems noted. Social History (Updated 03/27/24 @ 12:00 by Isaiah Abdi MD) Housing: Apartment Alcohol intake: current Alcohol intake frequency: a few times a month Alcohol type: beer and wine Comment: once a week Patient Tobacco Use Status: Never used Tobacco e-Cigarette/Vaping Use: Never Used Second Hand Smoke Exposure: No Current occupational status: retired Cognitive needs: No Hearing needs: No Vision needs: No Questionnaire Medicare Wellness Checkup [age] What gender do you identify with?: male During the past 4 weeks, how much have you been bothered by emotional problems such as feeling anxious, depressed, irritable, sad or downhearted, and blue?: not at all During the past 4 weeks, has your physical & emotional health limited your social activities with family, friends, neighbors, or groups?: not at all During the past 4 weeks, how much bodily pain have you generally had?: no pain During the past 4 weeks, was someone available to help you if you needed & wanted help?: no, not at all During the past 4 weeks, what was the hardest physical activity you could do for at least 2 minutes?: moderate Can you get to places out of walking distance without help? (For eg., can you travel alone on buses, taxis or drive your car?): Yes Can you go shopping for groceries or clothes without someone's help?: Yes Can you prepare your own meals?: Yes Can you do your housework without help?: Yes Because of any health problems, do you need the help of another person with your personal care needs such as eating, bathing, dressing or getting around the house?: No Can you handle your own money without help?: Yes During the past 4 weeks, how would you rate your health in general?: good During the past 4 weeks how have things been going for you?: pretty well Are you having difficulties driving your car?: no Do you always fasten your seat belt when you are in a car?: yes, usually During past 4 weeks, have you been bothered by the following: never: Falling or dizzy when standing up, Sexual problems?, Trouble eating well? and Problems using the telephone? and sometimes: Teeth or denture problems? and Tiredness or fatigue? Have you fallen 2 or more times in the past year?: No Are you afraid of falling?: No Are you a smoker?: no During the past 4 weeks, how many drinks of wine, beer, or other alcoholic beverages did you have?: 1 drink or less per week Do you exercise for about 20 minutes 3 or more times a week?: no, I usually do not exercise this much Have you been given information to help with the following?: yes: Keeping track of your medications? and no: Hazards in your house that might hurt you? How often do you have trouble taking medicines the way you have been told to take them?: I always take medicine as prescribed How confident are you that you can control & manage most of your health problems?: very confident What is your race?: White PHQ-9 Over the last 2 weeks, how often have you been bothered by any of the following problems? 1. Little interest or pleasure in doing things: not at all 2. Feeling down, depressed, or hopeless: not at all 3. Trouble falling or staying asleep, or sleeping too much: not at all 4. Feeling tired or having little energy: several days 5. Poor appetite or overeating: not at all 6. Feeling bad about yourself - or that you are a failure or have let yourself or your family down: not at all 7. Trouble concentrating on things, such as reading the newspaper or watching television: not at all 8. Moving or speaking so slowly that other people could have noticed. Or the opposite - being so fidgety or restless that you have been moving around a lot more than usual: not at all 9. Thoughts that you would be better off or of hurting yourself in some way: not at all Total score: 1 Source: Developed by Drs. Mina Fontaine, Lali Lopez, Stalin Son and colleagues, with an educational larry from [employer]. Review of Systems Const Denies poor appetite and Denies weakness Eyes Denies no additional complaints ENT Reports Normal hearing present, Denies dizziness, Denies nasal congestion, De nies tinnitus and Denies sore throat Card Denies chest pain, Denies syncope, Denies rapid heart rate and Denies dyspnea Resp Denies cough and Denies dyspnea GI Denies change in stool character, Reports constipation, Denies diarrhea, Denies nausea and Denies vomiting Denies dysuria and Denies urinary frequency Neuro Reports Normal hearing present, Denies confusion, Denies dizziness, Denies syncope and Denies weakness Psych Denies confusion Physical Exam Vital Signs: Last Vital Signs Pulse 78 03/27/24 11:26 BP 122/74 03/27/24 11:26 Pulse Ox 96 03/27/24 11:26 Oxygen Delivery Method Room Air 03/27/24 11:26 BMI result Body Mass Index 34.5 Const General: No confusion Orientation/consciousness: No confusion HEENT Head: Yes normocephalic Ears: external ears normal and TM's normal bilaterally Face and sinus: Yes normal facial exam Mouth: moist mucous membranes Throat: Yes tonsils normal Eyes Conjunctivae: conjunctivae normal Pupils: Equal, round and reactive pupils present and Pupil accommodation reflex normal Direct Ophthalmoscopy: normal light reflex Neck Neck: No lymphadenopathy Thyroid: Thyroid normal Chest Chest palpation & inspection: normal inspection of the chest Resp Effort & Inspection: normal respiratory effort and no audible wheezes Auscultation: clear to auscultation bilaterally, no crackles, no wheezes and lung sounds not diminished Cardio Rate: regular rate Rhythm: regular rhythm Peripheral pulses: radial pulses present and dorsalis pedis present GI Other: guaiac negative prosatate N Palpation (GI): no masses Auscultation: normal bowel sounds and normoactive bowel sounds Other: L groin rash noted Skin General skin exam: no rashes or lesions noted Rashes: no rashes Neuro General: No confusion Cranial nerves: Yes Equal, round and reactive pupils present and Yes Normal hearing present Cognition (Neuro): normal cognition Gait exam (Neuro): Normal gait present Motor exam (neuro): 5/5 motor strength present throughout Deep tendon reflexes (DTR's): Right brachioradialis reflex intensity grade: 2+, Left brachioradialis reflex intensity grade: 2+, Right patellar reflex intensity grade: 2+ and Left patellar reflex intensity grade: 2+ Extrem General: No edema Assessment & Plan Assessment & Plan (1) Encounter for subsequent annual wellness visit (AWV) in Medicare patient: Code(s): Z00.00 - Encounter for general adult medical examination without abnormal findings Plan: Patient is advised to eat healthy, keep well hydrated, keep active and have adequate sleep. (2) Hypothyroid: Code(s): E03.9 - Hypothyroidism, unspecified Qualifiers: Hypothyroidism type: acquired Qualified Code(s): E03.9 - Hypothyroidism, unspecified Plan: Continue with thyroid medication (3) Hypercholesterolemia: Code(s): E78.00 - Pure hypercholesterolemia, unspecified Plan: Avoid fried foods, chicken skin, eggs, butter margarine, pastries and meat. Be it pork or beef they have a lot of cholesterol LDL goal of less than 130 and triglyceride of less than 150 on atorvastatin 40 mg once a day (4) Hypertension: Code(s): I10 - Essential (primary) hypertension Qualifiers: Hypertension type: essential hypertension Qualified Code(s): I10 - Essential (primary) hypertension Plan: Continue with blood pressure medication. Decrease salt intake and exercise on lisinopril 10 mg once a day (5) Impaired glucose tolerance: Code(s): R73.02 - Impaired glucose tolerance (oral) Plan: Decrease the amount of carbohydrate intake, pasta, bread, rice and potatoes are all sugar and that is aside from all the sweet stuff, remember that fruits are good but they are Sweet also. (6) Obesity (BMI 30-39.9): Code(s): E66.9 - Obesity, unspecified Plan: Diet and exercise (7) Generalized anxiety disorder: Code(s): F41.1 - Generalized anxiety disorder Plan: Stable presently (8) Renal calculi: Comment: Left ESWL 7 mm left November 2023, ultrasound December 2023 small left renal calculi Code(s): N20.0 - Calculus of kidney Plan: Patient follows up with urology and under surveillance status post ESWL (9) High serum ferritin: Code(s): R79.89 - Other specified abnormal findings of blood chemistry Plan: Workup negative most likely reactive patient follows up with Hematology-Oncology (10) Tinea cruris: Code(s): B35.6 - Tinea cruris Plan: clotrimazole cream BID x 4 weeks Quality Reporting (2019) Depression/Bipolar (159/160/161/177) PHQ-9: Total score: 1 Coding Level of Care Code Medicare Subsequent (G0439) Diagnoses Encounter for subsequent annual wellness visit (AWV) in Medicare patient Z00.00 Acquired hypothyroidism E03.9 Hypothyroidism type: acquired Hypercholesterolemia E78.00 Essential hypertension I10 Hypertension type: essential hypertension Impaired glucose tolerance R73.02 Obesity (BMI 30-39.9) E66.9 Generalized anxiety disorder F41.1 Renal calculi N20.0 High serum ferritin R79.89 Tinea cruris B35.6
[2024-03-27 11:26] VITALS: BP 122/74; PULSE 78; O2SAT 96; BMI 34.5
== END 2024-03-27 12:16 | disposition home or self-care (01) ==
PROVIDERS: PCP Internal Medicine; Visit Provider Internal Medicine
DX: Z00.00 Encounter for general adult medical examination without abnormal findings (principal); E03.9 Hypothyroidism, unspecified; E78.00 Pure hypercholesterolemia, unspecified; I10 Essential (primary) hypertension; R73.02 Impaired glucose tolerance (oral); F41.1 Generalized anxiety disorder; N20.0 Calculus of kidney; R79.89 Other specified abnormal findings of blood chemistry; B35.6 Tinea cruris
CPT/HCPCS: G0439

== ENCOUNTER 2024-09-13 06:32 | Outpatient (REF) | payer MEDICARE, SELFPAY ==
[2024-09-13 06:46] LABS: MANUAL DIFF FLAG NO
[2024-09-13 07:19] LABS: Basophils Absolute Auto 0.1 X10*3/uL (0.0-0.2); Basophils Percent Auto 1.2 % (0-2); Eosinophils Absolute Auto 0.3 X10*3/uL (0.0-0.4); Eosinophils Percent Auto 3.5 % (0-4); Hematocrit 47.4 % (42.0-52.0); Hemoglobin 15.9 g/dl (14.0-18.0); Imm Gran Abs Auto 0.02 X10*3/uL (0.00-0.03); Imm Gran Pct Auto 0.2 % (0.0-0.4); Immature Retic Fraction 9.5 % (2.3-13.4); Lymphocytes Absolute Auto 2.7 X10*3/uL (1.2-4.9); Lymphocytes Percent Auto 31.4 % (20-40); Mean Corpuscular HGB Conc 33.5 g/dl (31.0-36.0); Mean Corpuscular Hemoglobin 30.1 pg (27.0-33.0); Mean Corpuscular Volume 89.8 fL (80.0-98.0); Mean Platelet Volume 10.4 fL (9.4-12.4); Monocytes Absolute Auto 0.6 X10*3/uL (0.1-1.2); Monocytes Percent Auto 7.4 % (2-11); Neutrophils Absolute Auto 4.8 x10*3/uL (2.0-8.3); Neutrophils Percent Auto 56.3 % (45-73); Platelet Count 253 X10*3/uL (160-400); Red Blood Count 5.28 X10*6/uL (4.60-5.80); Red Cell Distribution Width 13.4 % (11.0-16.0); Retic HGB Equivalent 34.1 pg (30.0-35.0); Reticulocyte Percent 1.2 % (0.5-1.8); Reticulocytes Absolute 0.061 X10*6/uL (0.026-0.095); White Blood Count 8.5 X10*3/uL (4.8-10.8)
[2024-09-13 07:29] LABS: Estimated Average Glucose 114 mg/dL; Hemoglobin A1C 149.7129 umol/L; Hemoglobin A1c % 5.6 % (<6.0)
[2024-09-13 07:57] LABS: Alanine Aminotransferase 38 U/L (0-40); Albumin Level 4.1 g/dL (3.5-5.0); Anion Gap 12 (12-20); Aspartate Amino Transferase 23 U/L (5-37); Bilirubin Total 0.9 mg/dL (0.0-1.0); Blood Urea Nitrogen 17 mg/dL (9-16); Calcium 9.5 mg/dL (8.4-10.2); Carbon Dioxide 27 mmol/L (22-29); Chloride 106 mmol/L (96-108); Cholesterol 158 mg/dL (<200); Estimated Glomerular Filt Rate > 60; Glucose Random 111 mg/dL (60-115); HDL Cholesterol 44 mg/dL (>40); Iron 160 mcg/dL (45-160); LDL Cholesterol Calculated 95 mg/dL (<100); Percent Iron Saturation 60 % (15-50); Potassium 4.2 mmol/L (3.3-5.1); Sodium 141 mmol/L (135-145); Total Iron Binding Capacity 268 mcg/dL (228-428); Total Protein 7.1 g/dL (6.5-8.0); Triglycerides 96 mg/dL (<150); Unsaturated Iron Binding 108 ug/dL
[2024-09-13 08:11] LABS: Alkaline Phosphatase 67 U/L (39-117); Ferritin 511 ng/mL (20-250); Free T4 (Free Thyroxine) 1.11 ng/dL (0.71-1.85); Thyroid Stimulating Hormone 2.28 uIU/mL (0.32-4.0)
[2024-09-13 08:12] LABS: Vitamin B12 537 pg/mL (200-900)
== END 2024-09-13 06:33 | disposition home or self-care (01) ==
LOC: HO.LAB 06:32
PROVIDERS: PCP Internal Medicine; Visit Provider Internal Medicine
DX: R79.89 Other specified abnormal findings of blood chemistry (principal); E78.00 Pure hypercholesterolemia, unspecified
CPT/HCPCS: 36415; 80053; 80061; 82607; 82728; 82746; 83036; 83540; 84439; 84443; 85025; 85045

== ENCOUNTER → 2024-09-25 10:44 | Outpatient (BNVA) | payer MEDICARE, SELFPAY | PROVIDERS: PCP Internal Medicine; Visit Provider Internal Medicine | DX: I10 Essential (primary) hypertension (principal); E78.00 Pure hypercholesterolemia, unspecified; E03.9 Hypothyroidism, unspecified; R73.02 Impaired glucose tolerance (oral); E66.9 Obesity, unspecified; R79.89 Other specified abnormal findings of blood chemistry | CPT/HCPCS: 99212 ==

== ENCOUNTER 2024-10-13 14:39 | Outpatient (REF) | payer MEDICARE, SELFPAY | END 2024-10-13 14:40 | disposition home or self-care (01) | LOC: HO.CT 14:39 | PROVIDERS: PCP Internal Medicine; Visit Provider Urology | DX: N20.0 Calculus of kidney (principal) | CPT/HCPCS: 74176 ==

== ENCOUNTER → 2024-10-13 14:40 | Outpatient (BNV) | payer MEDICARE, SELFPAY | PROVIDERS: PCP Internal Medicine; Visit Provider Radiology Diagnostic Radiology | DX: N20.0 Calculus of kidney (principal) | CPT/HCPCS: 74176 ==

== ENCOUNTER 2024-11-20 09:45 | Outpatient (AMB) | payer MEDICARE, SELFPAY ==
--- NOTE | 2024-11-20 10:33 | A.OFFVIS_ITS ---
Intake Visit Reasons: 11m/CT Intake Note: Patient presents to office today for an 11 month/CT Urology Meds- Tamsulosin, Vitamin B12 Allergies to Antibiotic- No Known Allergies Blood Thinner- None Diversified Cro[employer] Required: No Accompanied by: Self / Same As Patient Allergies No Known Allergies Allergy (Verified 11/20/24 10:35) Medication List - Last Reconciled 11/20/24 by Lore Jerome MD atorvastatin 40 mg PO DAILY clotrimazole 1% 1 appl topical BID 4 weeks cyanocobalamin (vitamin B-12) 1,000 mcg PO .once a week levothyroxine 25 mcg PO QAM lisinopril 10 mg PO DAILY tamsulosin 0.4 mg PO BEDTIME 14 days HPI Comments Details: 11/20/24--Solomon is a 74-year-old male presenting for follow-up concerning nephrolithiasis. His medical history includes repeated episodes of kidney stones, for which he underwent ESWL on his left kidney on November 10, 2023. Current imaging performed on October 13, 2024, indicated the successful resolution of stones on the left kidney, with no remaining stones present. However, a punctate calculus in the right kidney was documented without additional complications, such as hydronephrosis. Reviewed previous stone analysis 65% calcium oxalate, underscoring the importance of dietary interventions discussed at previous visits. The patient's management strategy includes dietary modification and hydration to prevent further stone formation. He does not report any significant urinary symptoms related to this condition at present. I have discussed diet modification to decrease risk of forming more kidney stones. I have discussed low oxalate diet and specific foods to avoid including certain green leafy vegetables, chocalate, nuts, tea, beets, rubarb; low sodium, decreased use of animal protein and the importance of hydration drinking up to 2-2.5 liters of fluids and use of adding lemon to water to increase citrate in the diet. A pamphlet is also provided today. Results - Tests and Diagnostics: - CT Stone Protocol (conducted on October 13, 2024): No stones in the left kidney; punctate stone observed in the right kidney; no hydronephrosis 12/23/23--Solomon is a 73-year-old male who presents today for FU calculus of kidney, s/p Left ESWL on 11/10/23. He states he is doing well. KUB 11/10/23 noted a 7 mm Left kidney stone. FU imaging - renal US 12/06/23 post Left ESWL-notes smaller left renal calculi, likely remaining stone fragments. Plan 24 hr urine, monitor kidneys, KUB in 3 months, CT stone protocol in 10 months. 11/04/23--Here for H and P regarding left ESWL. Procedure discussed. 7 mm upper pole left stone Questions answered. Will give medications today as lives alone and can pick them up prior to surgery 09/27/23: Solomon denies gross hematuria or renal colic, states he is voiding okay without any difficulty. Reviewed CTAP: 1. A 7 mm Nonobstructing left upper pole renal calculus. 2. Bilateral benign Bosniak class I and class II renal cysts which need no additional imaging or followup. The patient has had lithotripsy in the past, wants to wait until November, I discussed risks to include but not limited to, blood in the urine, bruising to the skin, kidney hematoma, possible need for another procedure if a stone fragment obstructs the ureter while passing, possible need to repeat procedure if stone is not completely fragmented. 07/28/2023-He presents today for an evaluation of calculus of the kidney. I have reviewed the abdominal US results from 04/28/2023 revealed a benign appearing cyst less than 4 cm in the right kidney and a possible 1 cm stone in the left kidney. I have reviewed the PSA results from 03/12/2023 revealed 2.0 ng/mL. Patient states that that he has had kidney stone many years ago. [facility] Medical History Obesity (BMI 30-39.9) Impaired glucose tolerance Hypertension Insomnia Hypercholesterolemia Hypothyroid Renal calculi Surgical History Hx of colonoscopy History of lithotripsy Family History Father No problems noted. Mother Diabetes Brother No problems noted. Social History Housing: Apartment Alcohol intake: current Alcohol intake frequency: a few times a month Alcohol type: beer and wine Comment: once a week Patient Tobacco Use Status: Never used Tobacco Tobacco use type: Cigarette e-Cigarette/Vaping Use: Never Used Second Hand Smoke Exposure: No Current occupational status: retired Cognitive needs: No Hearing needs: No Vision needs: No Review of Systems Const All systems reviewed & are unremarkable except as noted in HPI and below Reports no additional complaints Eyes Reports no additional complaints ENT Reports no additional complaints Card Reports no additional complaints Resp Reports no additional complaints GI Reports no additional complaints Reports as per HPI Musc Reports no additional complaints Skin/Breast Reports system reviewed and no additional complaints, except as documented Neuro Reports no additional complaints Psych Reports no additional complaints Endo Reports no additional complaints Darren/Lymph Reports no additional complaints Aller/Immun Reports no additional complaints Results Reviewed Results Reviewed: Date of Service: 10/13/24 EXAMINATION: CT ABDOMEN PELVIS WITHOUT IV CONTRAST HISTORY: N20.0 - Calculus of kidney COMPARISON: Comparison is made with the prior examination dated 09/10/2023. TECHNIQUE: CT scan of the abdomen and pelvis was performed without contrast using standard departmental protocol. Coronal and sagittal reformatted images were generated and reviewed. Oral contrast material was not administered per department protocol. This CT exam was performed with one or more of the following dose reduction techniques: automated exposure control, adjustment of the mA and/or kV according to patient size, use of iterative reconstruction technique. DLP: 700 mGy-cm FINDINGS: LOWER CHEST: The visualized lung bases are clear. There is no pleural effusion. CARDIOVASCULATURE: The heart is normal in size. There is no pericardial effusion. LIVER: The liver is normal in size and contour. Again seen is a 10 mm cyst in the inferior right lobe. GALLBLADDER / BILE DUCTS: The gallbladder is unremarkable. There is no intra or extrahepatic biliary ductal dilatation. SPLEEN: The spleen is normal in size and has an unremarkable unenhanced appearance. PANCREAS: The pancreas has an unremarkable unenhanced appearance. ADRENAL GLANDS: Unremarkable. KIDNEYS/RETROPERITONEUM: There is a punctate nonobstructing calculus at the upper pole of the right kidney. No left renal calculi are identified. There is no hydronephrosis or hydroureter. No ureteral calculi are seen. Again noted is a 3.6 cm cyst at the lower pole of the right kidney. There is a 4.2 cm left renal parapelvic cyst. Additional smaller cortical cysts are also noted. LYMPH NODES: No retroperitoneal lymphadenopathy is identified in the abdomen or pelvis. VASCULATURE: The abdominal aorta demonstrates atherosclerotic calcification, but is normal in caliber. MESENTERY/PERITONEUM: No free fluid. No masses. There is no free intraperitoneal gas. STOMACH: The stomach is collapsed, limiting evaluation. SMALL BOWEL: The small bowel is normal in caliber. COLON: There is diverticulosis of the sigmoid colon, without evidence of diverticulitis. APPENDIX: Normal. URINARY BLADDER/PELVIC ORGANS: The urinary bladder is collapsed, limiting evaluation. The prostate is normal in size. BONES / SOFT TISSUES: There is degenerative disc disease of the spine. IMPRESSION: Punctate nonobstructing calculus at the upper pole of the right kidney. No evidence of ureteral obstruction. Date of Service: 12/06/23 EXAMINATION: US RETROPERITONEAL LIMITED (RENAL ONLY) CLINICAL INFORMATION: Renal calculus. COMPARISON: CT abdomen and pelvis dated 09/10/2023; abdominal ultrasound dated 04/08/2023. TECHNIQUE: Real-time imaging of the kidneys. FINDINGS: RIGHT KIDNEY: 11.3 x 5.4 x 6.0 cm (SAG x AP x TRV). The kidney is normal in size, contour, and echogenicity. Renal cortical thickness is normal. No calculi or focal parenchymal lesions. No hydronephrosis. At the lower pole, a 3.9 cm benign, simple cyst is seen, for which no imaging follow-up is recommended. LEFT KIDNEY: 13.2 x 5.6 x 5.6 cm (SAG x AP x TRV). The kidney is normal in size, contour, and echogenicity. Renal cortical thickness is normal. No focal parenchymal lesions. At the interpolar aspect, 4 mm and 4 mm nonobstructing calculi are seen. At the lower pole, a 2 mm nonobstructing calculus is seen. No hydronephrosis. At the upper pole, a 1.7 cm benign, simple cyst is seen. At the interpolar aspect, 1.1 cm and 5.0 cm benign, simple cysts are seen. At the lower pole, a 1.8 cm benign, simple cyst is seen. These require no imaging follow-up. IMPRESSION: There are nonobstructing left renal calculi. No right renal calculus is seen. No hydronephrosis is noted bilaterally. Date of Service: 11/10/23 EXAMINATION: XR ABDOMEN KUB CLINICAL INDICATION: Left-sided kidney stone COMPARISON: CT abdomen pelvis September 10, 2023 TECHNIQUE: Single view, two film KUB of the abdomen was obtained. Overlying stool limits sensitivity for small renal calculi. FINDINGS: Again demonstrated is a 7 mm calcification projecting over the upper to midpole the left renal shadow. No definitive right-sided renal calcifications identified. No calcifications identified along the expected course of either ureter. Numerous pelvic calcifications are suspected to be vascular in nature. Nonobstructive bowel gas pattern. No acute osseous abnormality. IMPRESSION: Again demonstrated is a 7 mm calcification projecting over the upper to midpole of the left renal shadow. Assessment & Plan Assessment & Plan (1) Renal cysts, acquired, bilateral: Code(s): N28.1 - Cyst of kidney, acquired Category: Medical (2) Renal calculi: Comment: Left ESWL 7 mm left November 2023 Code(s): N20.0 - Calculus of kidney Category: Medical Plan - Maintain a diet low in oxalate-rich foods, such as nuts and green leafy ve getables, in moderation. - Increase hydration; aim for a high fluid intake to assist in kidney stone prevention. - Obtain vitamin B6 (100 mg daily) [id number] as discussed. - Await the 24-hour urine collection kit from [facility] and perform the test as instructed on a day without significant activities. - Follow up via a phone call to discuss urine results post-analysis. Patient was informed and verbally consented to the use of an ambient scribe for clinic note documentation during this visit. Patient Instructions: The patient had an opportunity to ask questions regarding treatment plan. The patient expressed understanding and agreement with the above treatment plan. The patient is aware they should contact our office by phone for worsening of their current condition or the appearance of new symptoms. Compliance is encouraged with any medications and followup testing that is ordered. It is a privilege to be allowed the opportunity to participate in the urologic care of your patient. If you have any questions or concerns regarding treatment for the above conditions please do not hesitate to contact me. The office telephone contact is [phone]. This note is constructed in part using voice recognition software. While every effort has been made to ensure accuracy chief of internal medicine errors may have been included. Yours sincerely, Lore Jerome MD Scribe Plan - Not visible on output: Patient was informed and verbally consented to the use of an ambient scribe for clinic note documentation during this visit. Coding Level of Care Code Est Pt Level 4 (98057) Diagnoses Renal cysts, acquired, bilateral N28.1 Renal calculi N20.0
== END 2024-11-20 11:48 | disposition home or self-care (01) ==
LOC: HO.HUSH 09:45
PROVIDERS: PCP Internal Medicine; Visit Provider Urology
DX: N28.1 Cyst of kidney, acquired (principal); N20.0 Calculus of kidney
CPT/HCPCS: 99214

== ENCOUNTER → 2024-11-20 09:45 | Outpatient (BNVA) | payer MEDICARE, SELFPAY | PROVIDERS: PCP Internal Medicine; Visit Provider Urology | DX: N28.1 Cyst of kidney, acquired (principal); N20.0 Calculus of kidney | CPT/HCPCS: 99212 ==

== ENCOUNTER 2025-02-19 08:09 | Outpatient (AMB) | payer MEDICARE, SELFPAY ==
--- NOTE | 2025-02-19 08:10 | A.OFFVIS_ITS ---
Intake Visit Reasons: 3m/[facility] Intake Note: Patient presents to office via telehealth for an 3m/L[facility]ol[facility] * [facility]olink comp. 11/28/24 Urology Meds- Tamsulosin, Vitamin B12 Allergies to Antibiotic- No Known Allergies Blood Thinner- None Director Records Management Required: No Accompanied by: Self / Same As Patient Allergies No Known Allergies Allergy (Verified 11/20/24 10:35) Medication List - Last Reconciled 02/19/25 by Lore Jerome MD atorvastatin 40 mg PO DAILY clotrimazole 1% 1 appl topical BID 4 weeks cyanocobalamin (vitamin B-12) 1,000 mcg PO .once a week levothyroxine 25 mcg PO QAM lisinopril 10 mg PO DAILY tamsulosin 0.4 mg PO BEDTIME 14 days HPI Comments Details: 02/19/25--- The patient is a 75-year-old male presenting with follow-up for kidn ey stones. - History of kidney stones with a recent 24-hour urine collection completed. - Imaging on 10/13/24 showed a punctate nonobstructing calculus in the upper pole of the right kidney. - 24-hour urine results showed a volume of 2.75 liters, urine calcium of 251 mg, urine oxalate of 36 mg, urine citrate of 609 mg, and urine sodium of 245 mg. - Last PSA was 2.96 on 03/22/24. Urinary Symptoms Review - Nocturia: Patient reports urinating a couple of times per night, more if having trouble sleeping. Results - Labs: 24-hour urine volume 2.75 liters, urine calcium 251 mg, urine oxalate 36 mg, urine citrate 609 mg, urine sodium 245 mg. - Imaging: CT of the abdomen on 10/13/24 showed a punctate nonobstructing calculus in the upper pole of the right kidney. - Screening: PSA level was 2.96 on 03/22/24. Discussion Notes I discussed the results of the 24-hour urine collection with the patient, noting that the urine volume was adequate, but the urine calcium and sodium levels were elevated. I recommended dietary sodium reduction and referred the patient to nephrology for further management. We also reviewed the patient's previous CT scan and PSA results, and I advised a follow-up renal ultrasound in a year. 11/20/24--Solomon is a 74-year-old male presenting for follow-up concerning nephrolithiasis. His medical history includes repeated episodes of kidney stones, for which he underwent ESWL on his left kidney on November 10, 2023. Current imaging performed on October 13, 2024, indicated the successful resolution of stones on the left kidney, with no remaining stones present. However, a punctate calculus in the right kidney was documented without additional complications, such as hydronephrosis. Reviewed previous stone analysis 65% calcium oxalate, underscoring the importance of dietary interventions discussed at previous visits. The patient's management strategy includes dietary modification and hydration to prevent further stone formation. He does not report any significant urinary symptoms related to this condition at present. I have discussed diet modification to decrease risk of forming more kidney stones. I have discussed low oxalate diet and specific foods to avoid including certain green leafy vegetables, chocalate, nuts, tea, beets, rubarb; low sodium, decreased use of animal protein and the importance of hydration drinking up to 2-2.5 liters of fluids and use of adding lemon to water to increase citrate in the diet. A pamphlet is also provided today. Results - Tests and Diagnostics: - CT Stone Protocol (conducted on October 13, 2024): No stones in the left kidney; punctate stone observed in the right kidney; no hydronephrosis 12/23/23--Solomon is a 73-year-old male who presents today for FU calculus of kidney, s/p Left ESWL on 11/10/23. He states he is doing well. KUB 11/10/23 noted a 7 mm Left kidney stone. FU imaging - renal US 12/06/23 post Left ESWL-notes smaller left renal calculi, likely remaining stone fragments. Plan 24 hr urine, monitor kidneys, KUB in 3 months, CT stone protocol in 10 months. 11/04/23--Here for H and P regarding left ESWL. Procedure discussed. 7 mm upper pole left stone Questions answered. Will give medications today as lives alone and can pick them up prior to surgery 09/27/23: Solomon denies gross hematuria or renal colic, states he is voiding okay without any difficulty. Reviewed CTAP: 1. A 7 mm Nonobstructing left upper pole renal calculus. 2. Bilateral benign Bosniak class I and class II renal cysts which need no additional imaging or followup. The patient has had lithotripsy in the past, wants to wait until November, I discussed risks to include but not limited to, blood in the urine, bruising to the skin, kidney hematoma, possible need for another procedure if a stone fragment obstructs the ureter while passing, possible need to repeat procedure if stone is not completely fragmented. 07/28/2023-He presents today for an evaluation of calculus of the kidney. I have reviewed the abdominal US results from 04/28/2023 revealed a benign appearing cyst less than 4 cm in the right kidney and a possible 1 cm stone in the left kidney. I have reviewed the PSA results from 03/12/2023 revealed 2.0 ng/mL. Patient states that that he has had kidney stone many years ago. FORMERLY [facility], [facility] Medical History Obesity (BMI 30-39.9) Impaired glucose tolerance Hypertension Insomnia Hypercholesterolemia Hypothyroid Renal calculi Surgical History Hx of colonoscopy History of lithotripsy Family History Father No problems noted. Mother Diabetes Brother No problems noted. Social History Housing: Apartment Alcohol intake: current Alcohol intake frequency: a few times a month Alcohol type: beer and wine Comment: once a week Patient Tobacco Use Status: Never used Tobacco Tobacco use type: Cigarette e-Cigarette/Vaping Use: Never Used Second Hand Smoke Exposure: No Current occupational status: retired Cognitive needs: No Hearing needs: No Vision needs: No Review of Systems Const All systems reviewed & are unremarkable except as noted in HPI and below Reports no additional complaints Eyes Reports no additional complaints ENT Reports no additional complaints Card Reports no additional complaints Resp Reports no additional complaints GI Reports no additional complaints Reports as per HPI Musc Reports no additional complaints Skin/Breast Reports system reviewed and no additional complaints, except as documented Neuro Reports no additional complaints Psych Reports no additional complaints Endo Reports no additional complaints Darren/Lymph Reports no additional complaints Aller/Immun Reports no additional complaints Telehealth Telehealth Telehealth Platform: [facility] Location of provider rendering services: practice address Location of patient: address on file Patient Identification confirmed using: Name, : Yes Telehealth method: video Patient verbally consented to treatment: Yes Patient verbally consented to billing insurance company: Yes Patient informed of any privacy concerns related to visit: Yes Results Reviewed Results Reviewed: Date of Service: 10/13/24 EXAMINATION: CT ABDOMEN PELVIS WITHOUT IV CONTRAST HISTORY: N20.0 - Calculus of kidney COMPARISON: Comparison is made with the prior examination dated 09/10/2023. TECHNIQUE: CT scan of the abdomen and pelvis was performed without contrast using standard departmental protocol. Coronal and sagittal reformatted images were generated and reviewed. Oral contrast material was not administered per department protocol. This CT exam was performed with one or more of the following dose reduction techniques: automated exposure control, adjustment of the mA and/or kV according to patient size, use of iterative reconstruction technique. DLP: 700 mGy-cm FINDINGS: LOWER CHEST: The visualized lung bases are clear. There is no pleural effusion. CARDIOVASCULATURE: The heart is normal in size. There is no pericardial effusion. LIVER: The liver is normal in size and contour. Again seen is a 10 mm cyst in the inferior right lobe. GALLBLADDER / BILE DUCTS: The gallbladder is unremarkable. There is no intra or extrahepatic biliary ductal dilatation. SPLEEN: The spleen is normal in size and has an unremarkable unenhanced appearance. PANCREAS: The pancreas has an unremarkable unenhanced appearance. ADRENAL GLANDS: Unremarkable. KIDNEYS/RETROPERITONEUM: There is a punctate nonobstructing calculus at the upper pole of the right kidney. No left renal calculi are identified. There is no hydronephrosis or hydroureter. No ureteral calculi are seen. Again noted is a 3.6 cm cyst at the lower pole of the right kidney. There is a 4.2 cm left renal parapelvic cyst. Additional smaller cortical cysts are also noted. LYMPH NODES: No retroperitoneal lymphadenopathy is identified in the abdomen or pelvis. VASCULATURE: The abdominal aorta demonstrates atherosclerotic calcification, but is normal in caliber. MESENTERY/PERITONEUM: No free fluid. No masses. There is no free intraperitoneal gas. STOMACH: The stomach is collapsed, limiting evaluation. SMALL BOWEL: The small bowel is normal in caliber. COLON: There is diverticulosis of the sigmoid colon, without evidence of diverticulitis. APPENDIX: Normal. URINARY BLADDER/PELVIC ORGANS: The urinary bladder is collapsed, limiting evaluation. The prostate is normal in size. BONES / SOFT TISSUES: There is degenerative disc disease of the spine. IMPRESSION: Punctate nonobstructing calculus at the upper pole of the right kidney. No evidence of ureteral obstruction. Date of Service: 12/06/23 EXAMINATION: US RETROPERITONEAL LIMITED (RENAL ONLY) CLINICAL INFORMATION: Renal calculus. COMPARISON: CT abdomen and pelvis dated 09/10/2023; abdominal ultrasound dated 04/08/2023. TECHNIQUE: Real-time imaging of the kidneys. FINDINGS: RIGHT KIDNEY: 11.3 x 5.4 x 6.0 cm (SAG x AP x TRV). The kidney is normal in size, contour, and echogenicity. Renal cortical thickness is normal. No calculi or focal parenchymal lesions. No hydronephrosis. At the lower pole, a 3.9 cm benign, simple cyst is seen, for which no imaging follow-up is recommended. LEFT KIDNEY: 13.2 x 5.6 x 5.6 cm (SAG x AP x TRV). The kidney is normal in size, contour, and echogenicity. Renal cortical thickness is normal. No focal parenchymal lesions. At the interpolar aspect, 4 mm and 4 mm nonobstructing calculi are seen. At the lower pole, a 2 mm nonobstructing calculus is seen. No hydronephrosis. At the upper pole, a 1.7 cm benign, simple cyst is seen. At the interpolar aspect, 1.1 cm and 5.0 cm benign, simple cysts are seen. At the lower pole, a 1.8 cm benign, simple cyst is seen. These require no imaging follow-up. IMPRESSION: There are nonobstructing left renal calculi. No right renal calculus is seen. No hydronephrosis is noted bilaterally. Date of Service: 11/10/23 EXAMINATION: XR ABDOMEN KUB CLINICAL INDICATION: Left-sided kidney stone COMPARISON: CT abdomen pelvis September 10, 2023 TECHNIQUE: Single view, two film KUB of the abdomen was obtained. Overlying stool limits sensitivity for small renal calculi. FINDINGS: Again demonstrated is a 7 mm calcification projecting over the upper to midpole the left renal shadow. No definitive right-sided renal calcifications identified. No calcifications identified along the expected course of either ureter. Numerous pelvic calcifications are suspected to be vascular in nature. Nonobstructive bowel gas pattern. No acute osseous abnormality. IMPRESSION: Again demonstrated is a 7 mm calcification projecting over the upper to midpole of the left renal shadow. Assessment & Plan Assessment & Plan (1) Screening PSA (prostate specific antigen): Code(s): Z12.5 - Encounter for screening for malignant neoplasm of prostate Category: Medical (2) Renal calculi: Comment: Left ESWL 7 mm left November 2023 Code(s): N20.0 - Calculus of kidney Category: Medical (3) Renal cysts, acquired, bilateral: Code(s): N28.1 - Cyst of kidney, acquired Category: Medical (4) Hypercalciuria: Code(s): R82.994 - Hypercalciuria Category: Medical Plan Plan - Recommend dietary sodium reduction to potentially decrease urine calcium levels. - Referral to nephrology - Plan for a follow-up renal ultrasound in one year. - PSA screening Orders: Orders US renal BI 11 Months N20.0 - Calculus of kidney, N28.1 - Cyst of kidney, acquired PSA,Total (Free>4and<10) Today Z12.5 - Encounter for screening for malignant neoplasm of prostate Referrals Nephrology Referral R82.994 - Hypercalciuria Medications: Discontinued tamsulosin Discontinued Reason: Patient Completed Course 0.4 mg PO BEDTIME 14 days 14 caps 0RF N20.0 - Calculus of kidney Patient Instructions: The patient had an opportunity to ask questions regarding treatment plan. The patient expressed understanding and agreement with the above treatment plan. The patient is aware they should contact our office by phone for worsening of their current condition or the appearance of new symptoms. Compliance is encouraged with any medications and followup testing that is ordered. It is a privilege to be allowed the opportunity to participate in the urologic care of your patient. If you have any questions or concerns regarding treatment for the above conditions please do not hesitate to contact me. The office telephone contact is [phone]. This note is constructed in part using voice recognition software. While every effort has been made to ensure accuracy gang worker errors may have been included. Yours sincerely, Lore Jerome MD Scribe Plan - Not visible on output: Patient was informed and verbally consented to the use of an ambient scribe for clinic note documentation during this visit. Coding Level of Care Code Tele Est Pt Level 4 (35095) Complex EM visit Add On G2211 Diagnoses Screening PSA (prostate specific antigen) Z12.5 Renal calculi N20.0 Renal cysts, acquired, bilateral N28.1 Hypercalciuria R82.994
== END 2025-02-19 08:48 | disposition home or self-care (01) ==
LOC: HO.HUSH 08:09
PROVIDERS: PCP Internal Medicine; Visit Provider Urology
DX: Z12.5 Encounter for screening for malignant neoplasm of prostate (principal); N20.0 Calculus of kidney; N28.1 Cyst of kidney, acquired; R82.994 Hypercalciuria
CPT/HCPCS: 99214; G2211

== ENCOUNTER → 2025-02-19 08:09 | Outpatient (BNVA) | payer MEDICARE, SELFPAY | PROVIDERS: PCP Internal Medicine; Visit Provider Urology ==

== ENCOUNTER 2025-03-08 06:18 | Outpatient (REF) | payer MEDICARE, SELFPAY ==
--- OUTSIDE RECORDS SUMMARY | 2025-03-08 06:21 | XMS_ITS | Patient Health Record ---
Author Organization [facility] Address [address] [place] [address] Care Team Providers Care Hot Mill Tin Roller Name Role Phone Paul Barriga M.D. Primary Care Provider Carmela garretilarodo Mina Amos Unavailable [phone] Reason For Referral No Information Medications Medication SIG (Take, Route, Fr equency, Duration) Notes Start Date End Date Status Lisinopril Active Levothyroxine Sodium Active Atorvastatin Calcium Active Problems Problem Type SNOMED Code ICD Code Onset Dates Problem Status W/U Status Risk Notes Problem [id number] Encounter for screening for malignant neoplasm of colon (Z12.11) Active confirmed Problem Screening for malignant neoplasm of rectum (564604526) Encounter for screening for malignant neoplasm of rectum (Z12.12) Active confirmed Problem 58108544 Preprocedural examination (Z01.818) Active confirmed Plan Of Treatment Future Test Test Name Order Date COLONOSCOPY 02/25/2016 Insurance Providers Payer Name Payer Address Payer Phone Subscriber Number Group Number Insured Name Patient Relationship to Insured Coverage Start Date Coverage End Date [facility] [address] [place] [phone] [id number] TIA BARROSO Self - patient is the insured Medical (General) History Medical History History ICD Code Screening olonoscopy 09-15-19 06--only hyperplastic polyp, sigmoid diverticulosis, internal hemorrhoids Kidney stones--ESWL Hyperlipidemia Denies CA,DM,CVA,Lung disease,renal dise ase Hypothyroidism HTN
[2025-03-08 09:06] LABS: PSA,Total (Free>4and<10) 3.82 ng/mL (0.00-4.00)
== END 2025-03-08 06:19 | disposition home or self-care (01) ==
LOC: HO.LAB 06:18
PROVIDERS: PCP Internal Medicine; Visit Provider Urology
DX: Z12.5 Encounter for screening for malignant neoplasm of prostate (principal)
CPT/HCPCS: 36415; 84153

== ENCOUNTER 2025-03-20 06:12 | Outpatient (REF) | payer MEDICARE, SELFPAY ==
--- OUTSIDE RECORDS SUMMARY | 2025-03-20 06:15 | XMS_ITS | Patient Health Record ---
Author Organization [facility] Address [address] [place] [address] Care Team Providers Care Support Associate Name Role Phone Paul Barriga M.D. Primary Care Provider Carmela garretilarodo Mina Amos Unavailable [phone] Reason For Referral No Information Medications Medication SIG (Take, Route, Fr equency, Duration) Notes Start Date End Date Status Lisinopril Active Levothyroxine Sodium Active Atorvastatin Calcium Active Problems Problem Type SNOMED Code ICD Code Onset Dates Problem Status W/U Status Risk Notes Problem [id number] Encounter for screening for malignant neoplasm of colon (Z12.11) Active confirmed Problem Screening for malignant neoplasm of rectum (352437520) Encounter for screening for malignant neoplasm of rectum (Z12.12) Active confirmed Problem 01147034 Preprocedural examination (Z01.818) Active confirmed Plan Of Treatment Future Test Test Name Order Date COLONOSCOPY 02/25/2016 Insurance Providers Payer Name Payer Address Payer Phone Subscriber Number Group Number Insured Name Patient Relationship to Insured Coverage Start Date Coverage End Date [facility] [address] [place] [phone] [id number] TIA BARROSO Self - patient is the insured Medical (General) History Medical History History ICD Code Screening olonoscopy 09-15-19 06--only hyperplastic polyp, sigmoid diverticulosis, internal hemorrhoids Kidney stones--ESWL Hyperlipidemia Denies [place],DM,CVA,Lung disease,renal dise ase Hypothyroidism HTN
[2025-03-20 06:30] LABS: MANUAL DIFF FLAG NO
[2025-03-20 07:47] LABS: Hematocrit 45.2 % (42.0-52.0); Hemoglobin 15.6 g/dl (14.0-18.0); Imm Gran Abs Auto 0.02 X10*3/uL (0.00-0.03); Imm Gran Pct Auto 0.2 % (0.0-0.4); Lymphocytes Absolute Auto 2.7 X10*3/uL (1.2-4.9); Mean Corpuscular HGB Conc 34.5 g/dl (31.0-36.0); Mean Corpuscular Hemoglobin 30.8 pg (27.0-33.0); Mean Corpuscular Volume 89.3 fL (80.0-98.0); NRBC Abs Auto 0.000 X10*3/uL (0.0-0.012); NRBC Pct Auto 0.0 /100WBC (0.0-0.2); Platelet Count 221 X10*3/uL (160-400); Red Blood Count 5.06 X10*6/uL (4.60-5.80); Reticulocytes Absolute 0.068 X10*6/uL (0.026-0.095); White Blood Count 8.2 X10*3/uL (4.8-10.8)
[2025-03-20 07:59] LABS: Hemoglobin A1C 162.4338 umol/L; Total Hemoglobin (HGBA1C) 4145.1257 umol/L
[2025-03-20 08:31] LABS: Appearance Urine Clear; Glucose Urine UA Negative (Negative); PH 7.0 (5.0-9.0); Specific Gravity - Urine 1.020 (1.005-1.025)
[2025-03-20 08:44] LABS: Albumin Level 4.3 g/dL (3.5-5.0); Alkaline Phosphatase 72 U/L (39-117); Anion Gap 11 (12-20); Aspartate Amino Transferase 25 U/L (5-37); Blood Urea Nitrogen 16 mg/dL (9-16); Calcium 9.1 mg/dL (8.4-10.2); Carbon Dioxide 27 mmol/L (22-29); Chloride 107 mmol/L (96-108); Cholesterol 137 mg/dL (<200); Estimated Glomerular Filt Rate > 60; HDL Cholesterol 42 mg/dL (>40); Iron 98 mcg/dL (45-160); Percent Iron Saturation 39 % (15-50); Potassium 4.4 mmol/L (3.3-5.1); Sodium 141 mmol/L (135-145); Total Iron Binding Capacity 253 mcg/dL (228-428); Total Protein 7.0 g/dL (6.5-8.0); Triglycerides 91 mg/dL (<150); Unsaturated Iron Binding 155 ug/dL
[2025-03-20 09:02] LABS: Alanine Aminotransferase 33 U/L (0-40)
[2025-03-20 09:06] LABS: Folate 9.8 ng/mL (> or = 4.0); Vitamin B12 557 pg/mL (200-900)
[2025-03-20 09:08] LABS: Ferritin 455 ng/mL (20-250); Free T4 (Free Thyroxine) 0.96 ng/dL (0.71-1.85); Thyroid Stimulating Hormone 2.42 uIU/mL (0.32-4.0)
== END 2025-03-20 06:13 | disposition home or self-care (01) ==
LOC: HO.LAB 06:12
PROVIDERS: PCP Internal Medicine; Visit Provider Internal Medicine
DX: E78.00 Pure hypercholesterolemia, unspecified (principal); R79.89 Other specified abnormal findings of blood chemistry; R73.02 Impaired glucose tolerance (oral); R30.0 Dysuria
CPT/HCPCS: 36415; 80053; 80061; 81001; 81003; 82607; 82728; 82746; 83036; 83540; 84153; 84439; 84443; 85025; 85045

== ENCOUNTER 2025-03-30 10:41 | Outpatient (AMB) | payer MEDICARE, SELFPAY ==
--- OUTSIDE RECORDS SUMMARY | 2025-03-30 10:48 | XMS_ITS | Patient Health Record ---
Author Organization [facility] Address [address] [place] [address] Care Team Providers Care Respiratory Therapy Manager Name Role Phone Paul Barriga M.D. Primary Care Provider Carmela garretilarodo Mina Amos Unavailable [phone] Reason For Referral No Information Medications Medication SIG (Take, Route, Fr equency, Duration) Notes Start Date End Date Status Lisinopril Active Levothyroxine Sodium Active Atorvastatin Calcium Active Problems Problem Type SNOMED Code ICD Code Onset Dates Problem Status W/U Status Risk Notes Problem 156859915 Encounter for screening for malignant neoplasm of colon (Z12.11) Active confirmed Problem Screening for malignant neoplasm of rectum (703868778) Encounter for screening for malignant neoplasm of rectum (Z12.12) Active confirmed Problem 89074300 Preprocedural examination (Z01.818) Active confirmed Plan Of Treatment Future Test Test Name Order Date COLONOSCOPY 02/25/2016 Insurance Providers Payer Name Payer Address Payer Phone Subscriber Number Group Number Insured Name Patient Relationship to Insured Coverage Start Date Coverage End Date [facility] [address] [place] [phone] [id number] TIA BARROSO Self - patient is the insured Medical (General) History Medical History History ICD Code Screening olonoscopy 09-15-19 06--only hyperplastic polyp, sigmoid diverticulosis, internal hemorrhoids Kidney stones--ESWL Hyperlipidemia Denies [place],DM,CVA,Lung disease,renal dise ase Hypothyroidism HTN
--- NOTE | 2025-03-30 10:55 | A.OFFVIS_ITS ---
Intake Vital Signs 03/30/25 10:57 Height 5 ft 8 in Weight 230 lb 4 oz BMI 35.0 BP 124/72 Blood Pressure Location Lt brachial Position Sitting Pulse 81 Pulse Source Pulse Oximeter Temp 97.1 F Temp Source Temporal Artery Scan Pulse Oximetry (%) 95 Oxygen Delivery Method Room Air Intake Visit Reasons: SAWV Intake Note: Patient is here for an Annual Wellness Visit. 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 Que ang Hematology Dr. Kwong Gastroenterology Dr. Amos. states Q 3 months getd diarrhea. [facility] Medical History Obesity (BMI 30-39.9) Impaired glucose tolerance Hypertension Insomnia Hypercholesterolemia Hypothyroid Renal calculi Surgical History Hx of colonoscopy History of lithotripsy Family History Father No problems noted. Mother Diabetes Brother No problems noted. Social History Housing: Apartment Alcohol intake: current Alcohol intake frequency: a few times a month Alcohol type: beer and wine Comment: once a week Patient Tobacco Use Status: Never used Tobacco Tobacco use type: Cigarette e-Cigarette/Vaping Use: Never Used Second Hand Smoke Exposure: No Current occupational status: retired Cognitive needs: No Hearing needs: No Vision needs: No Questionnaire Medicare Wellness Checkup [age] What gender do you identify with?: male During the past 4 weeks, how much have you been bothered by emotional problems such as feeling anxious, depressed, irritable, sad or downhearted, and blue?: not at all During the past 4 weeks, has your physical & emotional health limited your social activities with family, friends, neighbors, or groups?: not at all During the past 4 weeks, how much bodily pain have you generally had?: very mild pain During the past 4 weeks, was someone available to help you if you needed & wanted help?: no, not at all During the past 4 weeks, what was the hardest physical activity you could do for at least 2 minutes?: light Can you get to places out of walking distance without help? (For eg., can you travel alone on buses, taxis or drive your car?): Yes Can you go shopping for groceries or clothes without someone's help?: Yes Can you prepare your own meals?: Yes Can you do your housework without help?: Yes Because of any health problems, do you need the help of another person with your personal care needs such as eating, bathing, dressing or getting around the house?: No Can you handle your own money without help?: Yes During the past 4 weeks, how would you rate your health in general?: good During the past 4 weeks how have things been going for you?: good & bad parts about equal Are you having difficulties driving your car?: no Do you always fasten your seat belt when you are in a car?: yes, usually During past 4 weeks, have you been bothered by the following: never: Falling or dizzy when standing up, Sexual problems?, Trouble eating well?, Teeth or denture problems? and Problems using the telephone? and sometimes: Tiredness or fatigue? Have you fallen 2 or more times in the past year?: No Are you afraid of falling?: No Are you a smoker?: no During the past 4 weeks, how many drinks of wine, beer, or other alcoholic beverages did you have?: 1 drink or less per week Do you exercise for about 20 minutes 3 or more times a week?: yes, some of the time Have you been given information to help with the following?: no: Hazards in your house that might hurt you? and no: Keeping track of your medications? How often do you have trouble taking medicines the way you have been told to take them?: I always take medicine as prescribed How confident are you that you can control & manage most of your health problems?: very confident What is your race?: White Thrive Questionnaire Date Thrive assessed: 09/25/24 GENO-7 AMB Questionnaire GENO-7 Date GENO - 7 assessed: 09/25/24 Source: Developed by Drs. Mina Fontaine, Lali Lopez, Stalin Son and colleagues, with an educational larry from [employer]. Review of Systems Const Denies poor appetite and Denies weakness Eyes Denies no additional complaints ENT Reports Normal hearing present, Denies dizziness, Denies nasal congestion, Denies tinnitus and Denies sore throat Card Denies chest pain, Denies syncope, Denies rapid heart rate and Denies dyspnea Resp Denies cough and Denies dyspnea GI Denies change in stool character, Reports constipation, Denies diarrhea, Denies nausea and Denies vomiting Denies dysuria and Denies urinary frequency Neuro Reports Normal hearing present, Denies confusion, Denies dizziness, Denies syncope and Denies weakness Psych Denies confusion Physical Exam Vital Signs: Last Vital Signs Temp 97.1 F 03/30/25 10:57 Pulse 81 03/30/25 10:57 BP 124/72 03/30/25 10:57 Pulse Ox 95 03/30/25 10:57 Oxygen Delivery Method Room Air 03/30/25 10:57 BMI result Body Mass Index 35.0 Const General: No confusion Orientation/consciousness: No confusion HEENT Head: Yes normocephalic Ears: external ears normal and TM's normal bilaterally Face and sinus: Yes normal facial exam Mouth: moist mucous membranes Throat: Yes tonsils normal Eyes Conjunctivae: conjunctivae normal Pupils: Equal, round and reactive pupils present and Pupil accommodation reflex normal Direct Ophthalmoscopy: normal light reflex Neck Neck: No lymphadenopathy Thyroid: Thyroid normal Chest Chest palpation & inspection: normal inspection of the chest Resp Effort & Inspection: normal respiratory effort and no audible wheezes Auscultation: clear to auscultation bilaterally, no crackles, no wheezes and lung sounds not diminished Cardio Rate: regular rate Rhythm: regular rhythm Peripheral pulses: radial pulses present and dorsalis pedis present GI Other: guaiac negative prostate n Palpation (GI): no masses Auscultation: normal bowel sounds and normoactive bowel sounds Male General Exam: Yes normal external exam Skin General skin exam: no rashes or lesions noted Rashes: no rashes Neuro General: No confusion Cranial nerves: Yes Equal, round and reactive pupils present and Yes Normal hearing present Cognition (Neuro): normal cognition Gait exam (Neuro): Normal gait present Motor exam (neuro): 5/5 motor strength present throughout Deep tendon reflexes (DTR's): Right brachioradialis reflex intensity grade: 2+, Left brachioradialis reflex intensity grade: 2+, Right patellar reflex intensity grade: 2+ and Left patellar reflex intensity grade: 2+ Extrem General: No edema Assessment & Plan Assessment & Plan (1) Encounter for subsequent annual wellness visit (AWV) in Medicare patient: Code(s): Z00.00 - Encounter for general adult medical examination without abnormal findings Plan: Patient is advised to eat healthy, keep well hydrated, keep active and have adequate sleep. (2) Hypertension: Code(s): I10 - Essential (primary) hypertension Qualifiers: Hypertension type: essential hypertension Qualified Code(s): I10 - Essential (primary) hypertension Plan: Continue with blood pressure medication. Decrease salt intake and exercise patient on lisinopril 10 mg once a day (3) Hypercholesterolemia: Code(s): E78.00 - Pure hypercholesterolemia, unspecified Plan: Avoid fried foods, chicken skin, eggs, butter margarine, pastries and meat. Be it pork or beef they have a lot of cholesterol LDL goal of less than 130 and triglyceride of less than 150 on atorvastatin 40 mg once a (4) Impaired glucose tolerance: Code(s): R73.02 - Impaired glucose tolerance (oral) Plan: Decrease the amount of carbohydrate intake, pasta, bread, rice and potatoes are all sugar and that is aside from all the sweet stuff, remember that fruits are good but they are Sweet also. (5) Hypothyroid: Code(s): E03.9 - Hypothyroidism, unspecified Qualifiers: Hypothyroidism type: acquired Qualified Code(s): E03.9 - Hypothyroidism, unspecified Plan: Continue with thyroid medication (6) Obesity (BMI 30-39.9): Code(s): E66.9 - Obesity, unspecified Plan: Diet and exercise (7) Renal calculi: Comment: Left ESWL 7 mm left November 2023 Code(s): N20.0 - Calculus of kidney Plan: Patient follows up with urology and was advised to see Nephrology due to hypercalciuria (8) PSA elevation: Code(s): R97.20 - Elevated prostate specific antigen [PSA] Plan: Continue to follow-up with urology (9) High serum ferritin: Code(s): R79.89 - Other specified abnormal findings of blood chemistry Plan: Patient has seen hematology oncology and will continue to monitor. Ferritin elevation most likely reactive Plan History of Present Illness The patient is a 75-year-old male presenting for an annual wellness visit. The patient has a history of hypothyroidism, hypertension, and hypercholesterolemia, managed with appropriate medications including thyroid medication, lisinopril, and atorvastatin. He also has generalized anxiety disorder and a history of nephrolithiasis, with ongoing follow-up with urology and a recommendation to consult nephrology due to hypercalciuria. The patient reports experiencing intermittent diarrhea every three months, typically occurring at night, without identified dietary triggers. He has an elevated ferritin level, negative for the hemochromatosis gene, and is following a low iron diet with reduced alcohol intake as advised by hematology oncology. Recent laboratory results indicate normal blood count, electrolytes, renal function, with a hemoglobin A1c of 5.7 and LDL cholesterol at 77 mg/dL. The patient's PSA level was mildly elevated at 4.12, with a previous test showing 3.8, and he is aware of pre-test activity restrictions. Health Maintenance - Colon cancer screening overdue since 2016 - Shingles vaccination discussed - Regular monitoring of ferritin levels and adherence to low iron diet - Monitoring of PSA levels with awareness of pre-test activity restrictions Social History - Alcohol consumption is very infrequent, approximately once a month or less. - No history of tobacco use. - Reports drinking lemonade and water, with awareness of the need to increase water intake. Review of Systems - General: Denies fever, weight loss, or fatigue. - Cardiovascular: Denies chest pain, palpitations, or syncope. - Respiratory: Denies dyspnea, cough, or wheezing. - Gastrointestinal: Reports intermittent diarrhea every three months, denies nausea or vomiting. - Neurological: Denies dizziness, headaches, or balance issues. - Genitourinary: Denies dysuria, reports nocturia 2-3 times per night. Physical Exam General: Cooperative, healthy appearing, comfortable, no acute distress and well developed Orientation: Patient oriented x3 Limitations: No limitations Head: Normal to inspection Ears: Hearing slightly reduced on one side, but no recommendation for hearing tests Nose: Normal external nose present Face and sinus: Normal facial exam Eyes: Appearance normal, both eyes and all related structures Neck: Normal visual inspection and Yes full ROM Respiratory: Normal respiratory effort and able to speak in complete sentences. Clear to auscultation bilaterally Cardiovascular: Regular rate and rhythm. Normal S1 and S2 GI: Normal to inspection. Soft to palpation and nontender, except for occasional diarrhea every three months at night Skin: No rashes or lesions noted Neuro: Patient oriented x3 Extremities: Normal to inspection Results - Labs: Normal blood count, electrolytes, and renal function. - Labs: Hemoglobin A1c at 5.7, LDL cholesterol at 77 mg/dL. - Labs: Ferritin level decreased to 455, PSA mildly elevated at 4.12. Plan The patient will continue current management for hypothyroidism, hypertension, and hypercholesterolemia with thyroid medication, lisinopril, and atorvastatin, respectively. For nephrolithiasis and hypercalciuria, the patient is advised to follow up with nephrology and continue urology consultations. The patient is advised to monitor dietary intake to identify potential triggers for intermittent diarrhea and maintain a low iron diet to manage elevated ferritin levels. Regular monitoring of PSA levels is recommended, with awareness of pre- test activity restrictions to ensure accurate results. Preventative care measures include scheduling an overdue colon cancer screening and considering shingles vaccination. Patient was informed and verbally consented to the use of an ambient scribe for clinic note documentation during this visit. Discussion Notes During the visit, I discussed the importance of continuing current medications for hypothyroidism, hypertension, and hypercholesterolemia. I advised the patient to follow up with nephrology for hypercalciuria and continue urology consultations for nephrolithiasis. We discussed monitoring dietary intake to identify triggers for intermittent diarrhea and maintaining a low iron diet to manage elevated ferritin levels. I emphasized the need for regular PSA monitoring, with pre-test activity restrictions to ensure accurate results. Preventative care measures were reviewed, including the need for an overdue colon cancer screening and the option of receiving a shingles vaccination. Patient Instructions - Continue taking thyroid medication, lisinopril, and atorvastatin as prescribed. - Follow up with nephrology and urology as advised. - Monitor dietary intake to identify potential triggers for diarrhea. - Maintain a low iron diet and reduce alcohol intake. - Schedule a colon cancer screening and consider shingles vaccination. - Be aware of pre-test activity restrictions for PSA monitoring. Orders: Orders ECG 12 lead EKG Today I10 - Essential (primary) hypertension Medications: Changed From atorvastatin 20 mg PO DAILY 90 tabs 0RF E78.00 - Pure hypercholesterolemia, unspecified To atorvastatin 03/2025 Patient wants decrease in dose 20 mg PO DAILY 90 tabs 0RF E78.00 - Pure hypercholesterolemia, unspecified Coding Level of Care Code Medicare Subsequent (G0439) Diagnoses Encounter for subsequent annual wellness visit (AWV) in Medicare patient Z00.00 Essential hypertension I10 Hypertension type: essential hypertension Hypercholesterolemia E78.00 Impaired glucose tolerance R73.02 Acquired hypothyroidism E03.9 Hypothyroidism type: acquired Obesity (BMI 30-39.9) E66.9 Renal calculi N20.0 PSA elevation R97.20 High serum ferritin R79.89
[2025-03-30 10:57] VITALS: BP 124/72; PULSE 81; TEMP 36.2; O2SAT 95; BMI 35.0
== END 2025-03-30 12:12 | disposition home or self-care (01) ==
LOC: HO.HMCH 10:41
PROVIDERS: PCP Internal Medicine; Visit Provider Internal Medicine
DX: Z00.00 Encounter for general adult medical examination without abnormal findings (principal); I10 Essential (primary) hypertension; Z68.35 Body mass index [BMI] 35.0-35.9, adult; E66.9 Obesity, unspecified; E78.00 Pure hypercholesterolemia, unspecified; R73.02 Impaired glucose tolerance (oral); E03.9 Hypothyroidism, unspecified; N20.0 Calculus of kidney; R97.20 Elevated prostate specific antigen [PSA]; R79.89 Other specified abnormal findings of blood chemistry

== ENCOUNTER → 2025-04-02 10:46 | Outpatient (REF) | payer MEDICARE, SELFPAY ==
--- NOTE | 2025-04-02 10:50 | ECG_ITS ---
Test Reason : HTN Blood Pressure : */* mmHG Vent. Rate : 77 BPM Atrial Rate : 77 BPM P-R Int : 162 ms QRS Dur : 86 ms QT Int : 376 ms P-R-T Axes : 46 26 64 degrees QTcB Int : 425 ms Normal sinus rhythm Normal ECG When compared with ECG of 08-Apr-2023 08:46, No significant change was found Referred By: Isaiah Abdi Electronically Signed By: YONY TUCKER MD
--- OUTSIDE RECORDS SUMMARY | 2025-04-02 12:01 | XMS_ITS | Patient Health Record ---
Author Organization [facility] Address [address] [place] [address] Care Team Providers Care Park Keeper Name Role Phone Paul Barriga M.D. Primary Care Provider Carmela garretilarodo Mina Amos Unavailable [phone] Reason For Referral No Information Medications Medication SIG (Take, Route, Fr equency, Duration) Notes Start Date End Date Status Lisinopril Active Levothyroxine Sodium Active Atorvastatin Calcium Active Problems Problem Type SNOMED Code ICD Code Onset Dates Problem Status W/U Status Risk Notes Problem [id number] Encounter for screening for malignant neoplasm of colon (Z12.11) Active confirmed Problem Screening for malignant neoplasm of rectum ([id number]) Encounter for screening for malignant neoplasm of rectum (Z12.12) Active confirmed Problem [id number] Preprocedural examination (Z01.818) Active confirmed Plan Of Treatment Future Test Test Name Order Date COLONOSCOPY 02/25/2016 Insurance Providers Payer Name Payer Address Payer Phone Subscriber Number Group Number Insured Name Patient Relationship to Insured Coverage Start Date Coverage End Date [facility] [address] [place] [phone] [id number] TIA BARROSO Self - patient is the insured Medical (General) History Medical History History ICD Code Screening olonoscopy 09-15-19 06--only hyperplastic polyp, sigmoid diverticulosis, internal hemorrhoids Kidney stones--[facility] Hyperlipidemia Denies PA,DM,CVA,Lung disease,renal dise ase Hypothyroidism HTN
== END ==
LOC: HO.CARD 10:46
PROVIDERS: PCP Internal Medicine; Visit Provider Internal Medicine
DX: I10 Essential (primary) hypertension (principal)
CPT/HCPCS: 93005

== ENCOUNTER → 2025-04-02 10:50 | Outpatient (BNV) | payer MEDICARE, SELFPAY | PROVIDERS: PCP Internal Medicine; Visit Provider Internal Medicine Cardiovascular Disease | DX: I10 Essential (primary) hypertension (principal) | CPT/HCPCS: 93010 ==